=== PATIENT | female | born 2000 | race Caucasian/White ===

== ENCOUNTER 2018-01-05 12:13 | Emergency (ER) | payer OTHER ==
--- NOTE | 2018-01-05 13:19 | ERPHSYRPT ---
- History of Present Illness Time Seen by Provider: 01/05/18 13:07 Source: patient Patient Subjective Stated Complaint: PT REPORTS PRODUCTIVE YELLOW SPUTUM COUGH- SORETHRAOT-FEVER AROUND NORMAL Triage Nursing Assessment: PT PINK WARM ET [id number] EASY ET NONLABORED- LUNGS CLEAR Physician History: PATIENT COMPLAINS OF PRODUCTIVE COUGH YELLOW SPUTUM, FEVER, NASAL CONGESTION AND SORETHROAT X 5 DAYS. DENIES DIFFICULTY BREATHING, SHORTNESS OF BREATH AND DIFFICULTY BREATHING. Timing/Duration: day(s) Cough Quality/Degree: productive cough Possible Cause: occasional episodes Modifying Factors: Improves With: nothing Associated Symptoms: fever, cough, nasal congestion, sore throat Allergies/Adverse Reactions: No Known Drug Allergies Allergy (Unverified 01/05/18 13:03) Hx Tetanus, Diphtheria Vaccination/Date Given: Yes Hx Influenza Vaccination/Date Given: No Hx Pneumococcal Vaccination/Date Given: No Immunizations Up to Date: Yes - Review of Systems Constitutional: Fever, No Chills Eyes: No Symptoms Ears, Nose, & Throat: Nose Congestion, Throat Pain Respiratory: Cough, No Dyspnea Cardiac: No Symptoms, No Chest Pain, No Edema, No Syncope Abdominal/Gastrointestinal: No Symptoms, No Abdominal Pain, No Nausea, No Vomiting, No Diarrhea Genitourinary Symptoms: No Dysuria Musculoskeletal: No Symptoms, No Back Pain, No Neck Pain Skin: No Rash Neurological: No Dizziness, No Focal Weakness, No Sensory Changes Psychological: No Symptoms Endocrine: No Symptoms All Other Systems: Reviewed and Negative - Past Medical History Pertinent Past Medical History: No - Past Surgical History Past Surgical History: No - Social History Smoking Status: Never smoker Exposure to second hand smoke: No Drug Use: none Patient Lives Alone: No - Female History Hx Last Menstrual Period: LAST MONTH Hx Now: No - Nursing Vital Signs Nursing Vital Signs: Initial Vital Signs Temperature 98.9 F 01/05/18 12:59 Pulse Rate 88 01/05/18 12:59 Respiratory Rate 20 01/05/18 12:59 Blood Pressure 121/73 01/05/18 12:59 O2 Sat by Pulse Oximetry 97 01/05/18 12:59 Pain Scale Pain Intensity 0 - Physical Exam General Appearance: no apparent distress, alert Eye Exam: PERRL/EOMI, eyes nml inspection Ears, Nose, Throat Exam: normal ENT inspection, TMs normal, pharynx normal, moist mucous membranes Neck Exam: normal inspection, non-tender, supple, full range of motion Respiratory Exam: normal breath sounds, lungs clear, No respiratory distress Cardiovascular Exam: regular rate/rhythm, normal heart sounds Gastrointestinal/Abdomen Exam: soft, No tenderness Back Exam: normal inspection, No CVA tenderness, No vertebral tenderness Extremity Exam: normal inspection, normal range of motion Neurologic Exam: alert, oriented x 3, cooperative, normal mood/affect, sensation nml, No motor deficits Skin Exam: normal color, warm, dry, No rash Lymphatic Exam: No adenopathy SpO2 Interpretation: normal SpO2: 97 Oxygen Delivery: Room Air Ordered Tests: Active Orders 24 hr Category Date Time Status CULTURE, THROAT Stat Lab 01/05/18 13:30 Received STREP SCREEN-BETA A Stat Lab 01/05/18 13:30 Completed Lab/Rad Data: Laboratory Results 01/05/18 01/05/18 Range/Units 13:30 13:30 Influenza Type A Ag NEGATIVE (NEGATIVE) Influenza Type B Ag NEGATIVE (NEGATIVE) RSV (PCR) NEGATIVE (Negative) Streptococcus Screen NEGATIVE (Negative) - Progress Counseled pt/family regarding: lab results, diagnosis - Departure Time of Disposition: 14:20 Departure Disposition: Home Clinical Impression: ACUTE BRONCHITIS Condition: Stable Critical Care Time: No Additional Instructions: ALTERNATE MOTRIN EVERY OTHER 4 HOURS WITH TYLENOL NEEDED FOR FEVER, ACHES OR CHILLS. ANTIBIOTIC ZITHROMAX 250MG, 2 TABLETS DAY 1 THEN 1 TABLET DAILY FOR 4 DAYS. CONSULT YOUR PRIMARY CARE PROVIDER FOR FOLLOWUP IN 1 WEEK. Prescriptions: Azithromycin 250 mg [Zithromax 250 MG TABLET] 250 mg PO ZPACK #6 tablet
[2018-01-05 14:06] VITALS: BP 115/59; PULSE 66
[2018-01-05 14:18] LABS: INFLUENZA A NEGATIVE (NEGATIVE); INFLUENZA B NEGATIVE (NEGATIVE); RESPIRATORY SYNCTIAL VIRUS NEGATIVE (Negative)
[2018-01-05 14:23] VITALS: O2SAT 97
== END 2018-01-05 14:33 | disposition home or self-care (01) ==
LOC: ED 12:13
DX: J20.9 Acute bronchitis, unspecified (principal)
CPT/HCPCS: 87070; 87430; 87631; 99283

== ENCOUNTER 2018-05-11 11:36 | Emergency (ER) | payer OTHER ==
--- NOTE | 2018-05-11 11:58 | ERPHSYRPT ---
- History of Present Illness Time Seen by Provider: 05/11/18 11:48 Historian: patient Exam Limitations: no limitations Patient Subjective Stated Complaint: LLQ x1 month Triage Nursing Assessment: Pt presents to the ED with complaints LLQ abdominal pain x1 month, worse x1 week. Pt states intermittent constipation. Last BM yesterday. Pt states last menstrual cycle 03/04/2018. Pt states she believes her left side of her abdomin is swollen, no obvious swelling noted to abdominal. No distress noted, skin PWD. Physician History: Pt has been c/o LLQ abdominal pain for "weeks". She states, her pain has become worse over the past few days. She had her last MP over 2 months ago, denies current bleeding, discharge, no nausea, vomiting, fever, chills, diarrhea, but had urinary burning. She has never been , tested her urine for at home, it was negative. She states, she has been constipated, but had small BM yesterday. Timing/Duration: week(s) (4) Activities at Onset: none Quality: cramping Abdominal Pain Onset Location: LLQ Pain Radiation: no radiation Severity of Pain-Max: mild Severity of Pain-Current: moderate Modifying Factors: Improves With: nothing Associated Symptoms: denies symptoms Previous symptoms: no prior history Allergies/Adverse Reactions: No Known Drug Allergies Allergy (Unverified 01/05/18 13:03) Home Medications: No Reportable Medications [No Reported Medications] 05/11/18 [History] Hx Tetanus, Diphtheria Vaccination/Date Given: Yes Hx Influenza Vaccination/Date Given: Yes Hx Pneumococcal Vaccination/Date Given: No Immunizations Up to Date: Yes - Review of Systems Constitutional: No Symptoms Abdominal/Gastrointestinal: Abdominal Pain Genitourinary Symptoms: Frequency, Urgency, No Vaginal Bleeding, No Vaginal Discharge All Other Systems: Reviewed and Negative - Past Medical History Pertinent Past Medical History: No - Past Surgical History Past Surgical History: No - Social History Smoking Status: Current every day smoker How long have you smoked: 1 year Exposure to second hand smoke: Yes Drug Use: none Patient Lives Alone: No - Female History Hx Last Menstrual Period: 03/04/2018 Hx Now: No - Nursing Vital Signs Nursing Vital Signs: Initial Vital Signs Temperature 98.6 F 05/11/18 11:48 Pulse Rate 96 H 05/11/18 11:48 Respiratory Rate 16 05/11/18 11:48 Blood Pressure 116/70 05/11/18 11:48 O2 Sat by Pulse Oximetry 100 05/11/18 11:48 Pain Scale Pain Intensity 4 - Physical Exam General Appearance: no apparent distress Eye Exam: eyes nml inspection Ears, Nose, Throat Exam: normal ENT inspection Neck Exam: normal inspection, non-tender Respiratory Exam: normal breath sounds, lungs clear, airway intact Cardiovascular Exam: regular rate/rhythm, normal heart sounds, normal peripheral pulses Gastrointestinal/Abdomen Exam: soft, normal bowel sounds, tenderness (LLQ, mild) , No distention, No mass, No guarding, No rebound, No hernia Back Exam: normal inspection, No CVA tenderness Extremity Exam: normal inspection, No calf tenderness Neurologic Exam: alert, oriented x 3, normal mood/affect Skin Exam: normal color, warm, dry Lymphatic Exam: No adenopathy SpO2 Interpretation: normal SpO2: 100 Oxygen Delivery: Room Air - Course Nursing assessment & vital signs reviewed: Yes - Radiology Ultrasound Exam OB Ultrasound: tele radiology report, Other (thickened endometrial stripe without intrauterine gestational sac/, right ovary cystic mass not simple in appearance (5.4x3.5x3.0 cm), ectopic not completely excluded in the right) Ordered Tests: Active Orders 24 hr Category Date Time Status OB TRANSVAGINAL [US] Stat Exams 05/11/18 14:01 Completed CBC W DIFF Stat Lab 05/11/18 12:30 Completed CMP Stat Lab 05/11/18 12:30 Completed CULTURE,URINE Stat Lab 05/11/18 12:07 Received HCG, Quantitative (Inhouse) Stat Lab 05/11/18 12:30 Completed HCG,QUALITATIVE URINE Stat Lab 05/11/18 12:07 Completed LIPASE Stat Lab 05/11/18 12:30 Completed UA W/ MICROSCOPIC Stat Lab 05/11/18 12:07 Completed Medication Summary Discontinued Medications Generic Name Dose Route Start Last Admin Trade Name Freq PRN Reason Stop Dose Admin Cephalexin HCl 500 mg 05/11/18 16:49 Keflex 500 Mg PO 05/11/18 16:50 STAT ONE Lab/Rad Data: Laboratory Result Diagrams 05/11/18 12:30 05/11/18 12:30 Laboratory Results 05/11/18 05/11/18 05/11/18 Range/Units 13:33 12:30 12:30 WBC (4.0-10.5) K/mm3 RBC (4.1-5.4) M/mm3 Hgb (12.0-16.0) gm/dl Hct (35-47) % MCV (78-100) fl MCH (26-32) pg MCHC (32-36) g/dl RDW (11.5-14.0) % Plt Count (150-450) K/mm3 MPV (6-9.5) fl Gran % (36.0-66.0) % Eos # (Auto) (0-0.5) Absolute Lymphs (auto) (1.0-4.6) Absolute Monos (auto) (0.0-1.3) Lymphocytes % (24.0-44.0) % Monocytes % (0.0-12.0) % Eosinophils % (0.00-5.0) % Basophils % (0.0-0.4) % Absolute Granulocytes (1.4-6.9) Basophils # (0-0.4) Sodium 142 (137-145) mmol/L Potassium 3.7 (3.5-5.1) mmol/L Chloride 107 (98-107) mmol/L Carbon Dioxide 24 (22-30) mmol/L Anion Gap 14.7 (5-15) MEQ/L BUN 6 L (7-17) mg/dL Creatinine 0.53 (0.52-1.04) mg/dL Estimated GFR > 60.0 ML/MIN Glucose 90 (74-106) mg/dL Calcium 9.3 (8.4-10.2) mg/dL Total Bilirubin 0.20 (0.2-1.3) mg/dL AST 20 (14-36) U/L ALT 22 (0-35) U/L Alkaline Phosphatase 77 (38-126) U/L Serum Total Protein 7.4 (6.3-8.2) g/dL Albumin 4.4 (3.5-5.0) g/dL Lipase 29 (23-300) U/L Beta HCG, Quant 158.49 mIU/ml Ur Collection Type Urine Color (YELLOW) Urine Appearance (CLEAR) Urine pH (5-6) Ur Specific [place] (1.005-1.025) Urine Protein (Negative) Urine Ketones (NEGATIVE) Urine Blood (0-5) Deven/ul Urine Nitrite (NEGATIVE) Urine Bilirubin (NEGATIVE) Urine Urobilinogen (0-1) mg/dL Ur Leukocyte Esterase (NEGATIVE) Urine Microscopic WBC (0-5) /HPF Ur Epithelial Cells (FEW) /HPF Urine Bacteria (NEGATIVE) /HPF Urine Mucus (NEGATIVE) /HPF Urine Culture Reflexed (NO) Urine Glucose (NEGATIVE) mg/dL Urine HCG, Qual (Negative) Specimen Received ABO Group A Rh Factor POSITIVE Antibody Screen NEGATIVE (NEGATIVE) 05/11/18 05/11/18 05/11/18 Range/Units 12:30 12:07 12:07 WBC 7.1 (4.0-10.5) K/mm3 RBC 4.57 (4.1-5.4) M/mm3 Hgb 12.0 (12.0-16.0) gm/dl Hct 36.2 (35-47) % MCV 79.2 (78-100) fl MCH 26.3 (26-32) pg MCHC 33.1 (32-36) g/dl RDW 14.2 H (11.5-14.0) % Plt Count 269 (150-450) K/mm3 MPV 10.9 H (6-9.5) fl Gran % 58.7 (36.0-66.0) % Eos # (Auto) 0.35 (0-0.5) Absolute Lymphs (auto) 1.96 (1.0-4.6) Absolute Monos (auto) 0.56 (0.0-1.3) Lymphocytes % 27.7 (24.0-44.0) % Monocytes % 7.9 (0.0-12.0) % Eosinophils % 5.0 (0.00-5.0) % Basophils % 0.7 (0.0-0.4) % Absolute Granulocytes 4.15 (1.4-6.9) Basophils # 0.05 (0-0.4) Sodium (137-145) mmol/L Potassium (3.5-5.1) mmol/L Chloride (98-107) mmol/L Carbon Dioxide (22-30) mmol/L Anion Gap (5-15) MEQ/L BUN (7-17) mg/dL Creatinine (0.52-1.04) mg/dL Estimated GFR ML/MIN Glucose (74-106) mg/dL Calcium (8.4-10.2) mg/dL Total Bilirubin (0.2-1.3) mg/dL AST (14-36) U/L ALT (0-35) U/L Alkaline Phosphatase (38-126) U/L Serum Total Protein (6.3-8.2) g/dL Albumin (3.5-5.0) g/dL Lipase (23-300) U/L Beta HCG, Quant mIU/ml Ur Collection Type VOID Urine Color YELLOW (YELLOW) Urine Appearance HAZY (CLEAR) Urine pH 6.0 (5-6) Ur Specific [place] 1.020 (1.005-1.025) Urine Protein TRACE (Negative) Urine Ketones NEGATIVE (NEGATIVE) Urine Blood NEGATIVE (0-5) Deven/ul Urine Nitrite NEGATIVE (NEGATIVE) Urine Bilirubin NEGATIVE (NEGATIVE) Urine Urobilinogen NORMAL (0-1) mg/dL Ur Leukocyte Esterase TRACE (NEGATIVE) Urine Microscopic WBC 5-10 (0-5) /HPF Ur Epithelial Cells MODERATE (FEW) /HPF Urine Bacteria FEW (NEGATIVE) /HPF Urine Mucus SLIGHT (NEGATIVE) /HPF Urine Culture Reflexed YES (NO) Urine Glucose NEGATIVE (NEGATIVE) mg/dL Urine HCG, Qual POSITIVE (Negative) Specimen Received 05/11/18 120 ABO Group Rh Factor Antibody Screen (NEGATIVE) - Progress Progress: improved Progress Note: 05/11/18 16:53 I discussed the clinical findings with her, and called Dr Wiley, inhalation therapy aides teacher for Obstetrics. I informed him about our results and her current condition. He agreed to discharge her to follow up with quantitative Beta HCG level in 2 days and return if any worsening, severe pain, or bleeding. Pt also understood and agreed, to follow up with Dr Wiley after follow up blood work in 2-3 days. Discussed with : Saurabh Will see patient in: office Counseled pt/family regarding: lab results, diagnosis, need for follow-up, rad results - Departure Time of Disposition: 16:55 Departure Disposition: Home Clinical Impression: UTI (urinary tract infection) during Qualifiers: Trimester: first trimester Qualified Code(s): O23.41 - Unspecified infection of urinary tract in , first trimester Condition: Stable Critical Care Time: No Referrals: DOCTOR,NO FAMILY [Primary Care Provider] - Instructions: Ectopic (DC), Urinary Tract Infection, Adult (DC) Additional Instructions: Rest x 2-3 days, drink plenty of fluids, nothing vaginally! Follow up with Psychiatric Security Nurse in 2-3 days with serum Beta HCG level, return if severe pain, bleeding, fever> 102 F!
[2018-05-11 12:40] LABS: Appearance HAZY (CLEAR); Bacteria FEW /HPF (NEGATIVE); Bilirubin NEGATIVE (NEGATIVE); Blood NEGATIVE Ery/ul (0-5); Epithelial Cells MODERATE /HPF (FEW); Glucose NEGATIVE (NEGATIVE); Ketones NEGATIVE (NEGATIVE); Leukocyte Esterase TRACE (NEGATIVE); Mucus SLIGHT /HPF (NEGATIVE); Nitrite NEGATIVE (NEGATIVE); Protein,Urine Dip TRACE (Negative); Urobilinogen NORMAL mg/dL (0-1)
[2018-05-11 12:49] LABS: ALBUMIN 4.4 g/dL (3.5-5.0); ALKALINE PHOSPHATASE 77 U/L (38-126); ANION GAP 14.7 MEQ/L (5-15); BASOPHIL % 0.7 % (0.0-0.4); BLOOD UREA NITROGEN 6 mg/dL (7-17); Basophil (Absolute #) 0.05 (0-0.4); CHLORIDE 107 mmol/L (98-107); Calcium 9.3 mg/dL (8.4-10.2); Carbon Dioxide 24 mmol/L (22-30); Creatinine 1 0.53 mg/dL (0.52-1.04); Eosinophil (Absolute #) 0.35 (0-0.5); Glucose 90 mg/dL (74-106); Granulocyte Absolute (ANC) 4.15 (1.4-6.9); Granulocytes % 58.7 % (36.0-66.0); Hematocrit 36.2 % (35-47); LIPASE 29 U/L (23-300); Lymphocyte (Absolute #) 1.96 (1.0-4.6); Lymphocytes % 27.7 % (24.0-44.0); Mean Cell Volume 79.2 fl (78-100); Mean Corpuscular Hemoglobin 26.3 pg (26-32); Mean Corpuscular Hgb Concent. 33.1 g/dl (32-36); Mean Platelet Volume 10.9 fl (6-9.5); Monocyte (Absolute #) 0.56 (0.0-1.3); Monocytes % 7.9 % (0.0-12.0); Platelet Count 269 K/mm3 (150-450); Potassium 3.7 mmol/L (3.5-5.1); Red Blood Count 4.57 M/mm3 (4.1-5.4); Red Cell Distribution Width 14.2 % (11.5-14.0); SGOT/AST 20 U/L (14-36); SGPT/ALT 22 U/L (0-35); SODIUM 142 mmol/L (137-145); Total Protein 7.4 g/dL (6.3-8.2); White Blood Count 7.1 K/mm3 (4.0-10.5)
[2018-05-11 14:29] LABS: ABO TYPING A; Antibody Screen NEGATIVE (NEGATIVE); RH TYPING POSITIVE
--- NOTE | 2018-05-11 15:53 | XRAY ---
Indication: Pelvic pain. Positive test. Two-dimensional transvaginal pelvic ultrasound was performed. Comparison: None Uterus is anteverted measuring 7.6 x 3.9 x 5.0 cm. Myometrium homogeneous. Endometrial stripe is thickened measuring 12.3 mm. No intrauterine gestational sac, , or fluid collection. Right ovary measures 5.4 x 3.5 x 3.0 cm and the left measures 3.4 x 4.0 x 2.3 cm with normal color perfusion and follicular cysts bilaterally. Right ovary demonstrates a thin-walled 2.3 x 3.1 x 2.5 cm cyst with irregular internal hypoechogenicity and peripheral color flow. Ectopic not completely excluded in the right clinical setting. Tiny cul-de-sac fluid. Impression: 1. Thickened endometrial stripe without intrauterine gestational sac/. 2. Right ovary cystic mass not simple in appearance. Ectopic not completely excluded in the right clinical setting. 3. Tiny cul-de-sac fluid.
[2018-05-11 16:45] VITALS: BP 134/75; PULSE 74
[2018-05-11] MEDS ORDERED: KEFLEX 500 MG ONE (16:53)
[2018-05-11] MEDS: KEFLEX 500 MG PO ONE (16:54)
[2018-05-11 16:57] VITALS: O2SAT 100
== END 2018-05-11 17:11 | disposition home or self-care (01) ==
LOC: ED 11:36
DX: O23.40 Unspecified infection of urinary tract in pregnancy, unspecified trimester (principal); Z3A.00 Weeks of gestation of pregnancy not specified
CPT/HCPCS: 36415; 76817; 80053; 81000; 83690; 84702; 84703; 85025; 86850; 86900; 86901; 87086; 99284; A9270-GY

== ENCOUNTER 2018-05-23 21:27 | Emergency (ER) | payer OTHER ==
[2018-05-23 21:53] VITALS: PULSE 91; O2SAT 100
[2018-05-23] MEDS ORDERED: Sodium Chloride 0.9% 1000 ML 1,000 ML IV STA (22:13)
[2018-05-23] MEDS ORDERED: Sodium Chloride 0.9% 1000 ML 1,000 ML ONE (22:17)
--- NOTE | 2018-05-23 22:21 | ERPHSYRPT ---
- History of Present Illness Time Seen by Provider: 05/23/18 21:54 Source: patient Exam Limitations: no limitations Patient Subjective Stated Complaint: Pt arrives to ER with c/o lower abdominal / pelvic pain began 2 days ago stating is but unsure of how far along. States last period was February 16-March 04. Pt has not had OB follow up and has been unable to see PCP d/t he was at . Rescheduled for 06/09/18. pt states always has vomiting d/t which is normal for her. pt also denies diarrhea or constipation. pt states has bladder infection, states was seen here last week and diagnosed with ovarian cysts, UTI and . States abx make her sick so has not been taking them. Triage Nursing Assessment: see above Physician History: Pt was seen here 10 days ago, with abdominal pain, was few weeks , her pelvic US did not reveal intrauterine . Her quant. HCG was >400 2 days later, she has not been seen by her OB yet. She started c/o suprapubic cramps 2 days ago, denies bleeding, fever, chills, but had some discharge. She also denies urinary complaints, has been vomiting x 2-3 daily, ever since diagnosed with the . Timing/Duration: day(s) (2) Activites at Onset: none Quality: cramping Onset Location: suprapubic Pain Radiation: none Severity of Pain-Max: mild Severity of Pain-Current: mild Prior abdominal problems: none Sexual intercourse history: non-contributory Associated Symptoms: nausea, vomiting, vaginal discharge Allergies/Adverse Reactions: No Known Drug Allergies Allergy (Unverified 05/23/18 21:53) Hx Tetanus, Diphtheria Vaccination/Date Given: Yes Hx Influenza Vaccination/Date Given: Yes Hx Pneumococcal Vaccination/Date Given: No - Review of Systems Constitutional: No Symptoms Abdominal/Gastrointestinal: Abdominal Pain, Nausea, Vomiting Genitourinary Symptoms: Vaginal Discharge All Other Systems: Reviewed and Negative - Past Medical History Pertinent Past Medical History: Yes Neurological History: No Pertinent History Other Medical History: ovarian cysts - Past Surgical History Past Surgical History: No - Social History Smoking Status: Former smoker How long have you smoked: 1 year Exposure to second hand smoke: No Drug Use: none Patient Lives Alone: No - Female History Hx Last Menstrual Period: February 26-Viridiana 6 Hx Now: Yes - Nursing Vital Signs Nursing Vital Signs: Initial Vital Signs Temperature 98.3 F 05/23/18 21:39 Pulse Rate 91 H 05/23/18 21:39 Respiratory Rate 18 05/23/18 21:39 Blood Pressure 153/82 05/23/18 21:39 O2 Sat by Pulse Oximetry 100 05/23/18 21:39 Pain Scale Pain Intensity 6 - Physical Exam General Appearance: no apparent distress Eye Exam: eyes nml inspection Ears, Nose, Throat Exam: normal ENT inspection, moist mucous membranes Neck Exam: normal inspection, non-tender, supple Respiratory Exam: normal breath sounds, lungs clear, airway intact, No chest tenderness Cardiovascular Exam: regular rate/rhythm, normal heart sounds, normal peripheral pulses, No murmur Gastrointestinal/Abdomen Exam: soft, normal bowel sounds, tenderness (suprapubic , mild), No distention, No mass, No guarding, No ecchymosis, No pulsatile mass, No rebound, No hernia, No organomegaly Pelvic Exam: normal external exam, cervical motion tenderness, vaginal discharge (light, thin white), No adnexal tenderness, No adnexal mass, No vaginal bleeding, No uterine tenderness Back Exam: normal inspection, No CVA tenderness Extremity Exam: normal inspection, No calf tenderness, No pedal edema Neurologic Exam: alert, oriented x 3, normal mood/affect Skin Exam: normal color, warm, dry, No rash Lymphatic Exam: No adenopathy SpO2 Interpretation: normal SpO2: 100 Oxygen Delivery: Room Air - Course Nursing assessment & vital signs reviewed: Yes - Radiology Ultrasound Exam OB Ultrasound: Other (intrauterine gestational sac) Ordered Tests: Active Orders 24 hr Category Date Time Status IV Insertion STAT Care 05/23/18 22:13 Active NPO (ED) STAT Care 05/23/18 22:13 Active OB <14 WKS 1ST GESTATION [US] Stat Exams 05/23/18 22:14 Taken CBC W DIFF Stat Lab 05/23/18 22:13 Completed CMP Stat Lab 05/23/18 22:13 Completed HCG, Quantitative (Inhouse) Stat Lab 05/23/18 22:14 Completed UA W/RFX UR CULTURE Stat Lab 05/23/18 22:20 Completed Wet Prep Stat Lab 05/23/18 23:15 Uncollected Medication Summary Discontinued Medications Generic Name Dose Route Start Last Admin Trade Name Freq PRN Reason Stop Dose Admin Sodium Chloride 1,000 mls @ 999 mls/hr 05/23/18 22:13 05/23/18 22:20 Sodium Chloride 0.9% 1000 Ml IV 05/23/18 23:13 999 mls/hr .Q1H1M STA Administration Sodium Chloride Confirm 05/23/18 22:17 Sodium Chloride 0.9% 1000 Ml Administered 05/23/18 22:18 Dose 1,000 mls @ ud .ROUTE .STK-MED ONE Potassium Chloride 20 meq 05/23/18 23:23 Potassium Chloride 20 Meq Powder For Oral Eli PO 05/23/18 23:24 NOW ONE Lab/Rad Data: Laboratory Result Diagrams 05/23/18 22:13 05/23/18 22:13 Laboratory Results 05/23/18 05/23/18 05/23/18 Range/Units 22:20 22:14 22:13 WBC (4.0-10.5) K/mm3 RBC (4.1-5.4) M/mm3 Hgb (12.0-16.0) gm/dl Hct (35-47) % MCV (78-100) fl MCH (26-32) pg MCHC (32-36) g/dl RDW (11.5-14.0) % Plt Count (150-450) K/mm3 MPV (6-9.5) fl Gran % (36.0-66.0) % Eos # (Auto) (0-0.5) Absolute Lymphs (auto) (1.0-4.6) Absolute Monos (auto) (0.0-1.3) Lymphocytes % (24.0-44.0) % Monocytes % (0.0-12.0) % Eosinophils % (0.00-5.0) % Basophils % (0.0-0.4) % Absolute Granulocytes (1.4-6.9) Basophils # (0-0.4) Sodium 141 (137-145) mmol/L Potassium 3.4 L (3.5-5.1) mmol/L Chloride 103 (98-107) mmol/L Carbon Dioxide 24 (22-30) mmol/L Anion Gap 17.0 H (5-15) MEQ/L BUN 8 (7-17) mg/dL Creatinine 0.52 (0.52-1.04) mg/dL Estimated GFR > 60.0 ML/MIN Glucose 91 (74-106) mg/dL Calcium 9.9 (8.4-10.2) mg/dL Total Bilirubin 0.20 (0.2-1.3) mg/dL AST 20 (14-36) U/L ALT 30 (0-35) U/L Alkaline Phosphatase 74 (38-126) U/L Serum Total Protein 8.4 H (6.3-8.2) g/dL Albumin 5.0 (3.5-5.0) g/dL Beta HCG, Quant > 88705 mIU/ml Ur Collection Type VOID Urine Color YELLOW (YELLOW) Urine Appearance CLEAR (CLEAR) Urine pH 7.0 (5-6) Ur Specific [place] 1.010 (1.005-1.025) Urine Protein NEGATIVE (Negative) Urine Ketones NEGATIVE (NEGATIVE) Urine Blood NEGATIVE (0-5) Deven/ul Urine Nitrite NEGATIVE (NEGATIVE) Urine Bilirubin NEGATIVE (NEGATIVE) Urine Urobilinogen NORMAL (0-1) mg/dL Ur Leukocyte Esterase NEGATIVE (NEGATIVE) Urine Culture Reflexed NO (NO) Urine Glucose NEGATIVE (NEGATIVE) mg/dL Specimen Received 05/23/180 05/23/18 Range/Units 22:13 WBC 9.3 (4.0-10.5) K/mm3 RBC 4.77 (4.1-5.4) M/mm3 Hgb 12.6 (12.0-16.0) gm/dl Hct 38.0 (35-47) % MCV 79.7 (78-100) fl MCH 26.4 (26-32) pg MCHC 33.2 (32-36) g/dl RDW 14.5 H (11.5-14.0) % Plt Count 338 (150-450) K/mm3 MPV 11.2 H (6-9.5) fl Gran % 63.0 (36.0-66.0) % Eos # (Auto) 0.28 (0-0.5) Absolute Lymphs (auto) 2.44 (1.0-4.6) Absolute Monos (auto) 0.68 (0.0-1.3) Lymphocytes % 26.3 (24.0-44.0) % Monocytes % 7.3 (0.0-12.0) % Eosinophils % 3.0 (0.00-5.0) % Basophils % 0.4 (0.0-0.4) % Absolute Granulocytes 5.84 (1.4-6.9) Basophils # 0.04 (0-0.4) Sodium (137-145) mmol/L Potassium (3.5-5.1) mmol/L Chloride (98-107) mmol/L Carbon Dioxide (22-30) mmol/L Anion Gap (5-15) MEQ/L BUN (7-17) mg/dL Creatinine (0.52-1.04) mg/dL Estimated GFR ML/MIN Glucose (74-106) mg/dL Calcium (8.4-10.2) mg/dL Total Bilirubin (0.2-1.3) mg/dL AST (14-36) U/L ALT (0-35) U/L Alkaline Phosphatase (38-126) U/L Serum Total Protein (6.3-8.2) g/dL Albumin (3.5-5.0) g/dL Beta HCG, Quant mIU/ml Ur Collection Type Urine Color (YELLOW) Urine Appearance (CLEAR) Urine pH (5-6) Ur Specific [place] (1.005-1.025) Urine Protein (Negative) Urine Ketones (NEGATIVE) Urine Blood (0-5) Deven/ul Urine Nitrite (NEGATIVE) Urine Bilirubin (NEGATIVE) Urine Urobilinogen (0-1) mg/dL Ur Leukocyte Esterase (NEGATIVE) Urine Culture Reflexed (NO) Urine Glucose (NEGATIVE) mg/dL Specimen Received - Progress Progress: improved Air Movement: good Progress Note: 05/23/18 23:[address] Gutierrez, discussed our results and her current condition, she agreed to see her in her office in few days, other gallegos recommended rest x 2-3 days, drink plenty of fluids, and return if severe pain, vomiting, or fever> 102 F. She was given prescription for Diclegis #10 BID as needed for vomiting. Discussed with : Brenda Will see patient in: office Counseled pt/family regarding: lab results, diagnosis, need for follow-up, rad results - Departure Time of Disposition: 23:35 Departure Disposition: Home Clinical Impression: Pelvic pain affecting in first trimester, antepartum Condition: Stable Critical Care Time: No Referrals: RAFIA GUTIERREZ [ACTIVE STAFF] - Instructions: Acute Pelvic Pain (DC) Additional Instructions: Rest x 2-3 days, drink plenty of fluids, follow up with Electronic Equipment Installer in 2-3 days , return if severe pain, bleeding, severe vomiting, fever> 102 F! Prescriptions: Doxylamine Succinate/Vit B6 [Stanton Porras 10-10 mg Tablet] 1 each PO BID PRN #10 tablet. PRN Reason: Nausea/Vomiting
[2018-05-23 22:28] LABS: BASOPHIL % 0.4 % (0.0-0.4); Basophil (Absolute #) 0.04 (0-0.4); Eosinophil (Absolute #) 0.28 (0-0.5); Granulocyte Absolute (ANC) 5.84 (1.4-6.9); Hemoglobin 12.6 gm/dl (12.0-16.0); Lymphocyte (Absolute #) 2.44 (1.0-4.6); Lymphocytes % 26.3 % (24.0-44.0); Mean Cell Volume 79.7 fl (78-100); Mean Corpuscular Hemoglobin 26.4 pg (26-32); Mean Corpuscular Hgb Concent. 33.2 g/dl (32-36); Mean Platelet Volume 11.2 fl (6-9.5); Monocyte (Absolute #) 0.68 (0.0-1.3); Monocytes % 7.3 % (0.0-12.0); Platelet Count 338 K/mm3 (150-450); Red Blood Count 4.77 M/mm3 (4.1-5.4); Red Cell Distribution Width 14.5 % (11.5-14.0); White Blood Count 9.3 K/mm3 (4.0-10.5)
[2018-05-23 22:53] LABS: ALKALINE PHOSPHATASE 74 U/L (38-126); BLOOD UREA NITROGEN 8 mg/dL (7-17); CHLORIDE 103 mmol/L (98-107); Calcium 9.9 mg/dL (8.4-10.2); Carbon Dioxide 24 mmol/L (22-30); Creatinine 1 0.52 mg/dL (0.52-1.04); Glucose 91 mg/dL (74-106); Potassium 3.4 mmol/L (3.5-5.1); SGOT/AST 20 U/L (14-36); SGPT/ALT 30 U/L (0-35); SODIUM 141 mmol/L (137-145); Total Protein 8.4 g/dL (6.3-8.2)
[2018-05-23 23:16] LABS: Appearance CLEAR (CLEAR); Bilirubin NEGATIVE (NEGATIVE); Blood NEGATIVE Ery/ul (0-5); Glucose NEGATIVE (NEGATIVE); Ketones NEGATIVE (NEGATIVE); Leukocyte Esterase NEGATIVE (NEGATIVE); Nitrite NEGATIVE (NEGATIVE); Protein,Urine Dip NEGATIVE (Negative); Urobilinogen NORMAL mg/dL (0-1)
[2018-05-23] MEDS ORDERED: POTASSIUM CHLORIDE 20 MEQ POWDER FOR ORAL SOL PO ONE (23:23)
[2018-05-23] MEDS ORDERED: POTASSIUM CHLORIDE 20 MEQ POWDER FOR ORAL SOL ONE (23:30)
[2018-05-23 23:42] VITALS: BP 115/52
[2018-05-23 23:56] LABS: Bacteria Rare; Clue Cells None Seen; Red Blood Cells Rare; Trichomonas None Seen; White Blood Cells Few
[2018-05-24 00:04] LABS: ABO TYPING A; Antibody Screen NEGATIVE (NEGATIVE); RH TYPING POSITIVE
--- NOTE | 2018-05-24 14:08 | XRAY ---
Exam: OB ultrasound less than 14 weeks from 05/23/2018. Comparison: Transvaginal OB ultrasound from 05/11/2018. Indication: Pelvic cramping. Technique: Longitudinal and transverse transabdominal sonogram images were obtained of the pelvis using the bladder as an acoustical window. Findings: The uterus is anteflexed. I now see a normal oval-shaped and positioned gestational sac within the upper uterine segment with an average gestational sac diameter of 1.15 cm consistent with a gestational age of 5 weeks 2 days. However, I do not see a definite intrauterine pole or yolk sac as of yet. It may be too early to see this. I would suggest a follow-up ultrasound in 7-10 days for ongoing evaluation. I see no fluid within the lower uterine segment or cervical canal. No free fluid is seen within the cul-de-sac. The right ovary is remarkable for a cyst at its posterior margin measuring about 3.3 cm x 2.2 cm in cross section. This was seen on the prior OB ultrasound from 05/11/2018 as well, although this cyst appeared somewhat complicated regarding its internal acoustical architecture on the prior study. This is not evident on the current transabdominal study. The remainder of the right ovary appears of unremarkable size and echogenicity. Normal color blood flow is seen within the maternal right ovary. The left ovary reveals a normal size, shape, and echogenicity. Impression: 1. I now see a small apparent gestational sac within the upper uterine segment. The sac size suggests a gestational age of 5 weeks 2 days. However, a definite pole or yolk sac is not seen as of yet. Consider a follow-up ultrasound in 7-10 days as a progress study. 2. I see an apparent oval-shaped 3.3 cm x 2.2 cm cyst at the posterior margin of the maternal right ovary. Internal echoes seen on the prior transvaginal study of 05/11/2018 are unable to be seen on the current transabdominal study. The cyst appears about the same size. 3. The remainder of the maternal ovaries appears unremarkable. 4. No free fluid is seen within the cul-de-sac.
== END 2018-05-23 23:55 | disposition home or self-care (01) ==
LOC: ED 21:27
DX: O26.891 Other specified pregnancy related conditions, first trimester (principal); R10.2 Pelvic and perineal pain
CPT/HCPCS: 36000; 36415; 76801; 76815; 80053; 81002; 84702; 85025; 86850; 86900; 86901; 87210; 87490; 87590; 96360; 96374; 99284

== ENCOUNTER 2018-07-11 15:07 | Emergency (ER) | payer MEDICAID, OTHER ==
[2018-07-11 15:25] VITALS: O2SAT 99
--- NOTE | 2018-07-11 15:53 | ERPHSYRPT ---
- History of Present Illness Time Seen by Provider: 07/11/18 15:35 Source: patient, family Exam Limitations: no limitations Patient Subjective Stated Complaint: pt here fo a syncope episode at work prior to arrival, pt deneis any co's at present time.pt vomited before and after her syncopal epsiode Triage Nursing Assessment: pt walked in, resp easy, skin w/d/p. abd soft Physician History: 17 Y/O WHITE FEMALE WHO IS 13 WEEKS , PRESENTS AFTER A SYNCOPAL EPISODE AT WORK. WITNESSES SAY NO HEAD INJURY. PT WAS FEELING WARM AND HAD NAUSEA PRIOR TO EPISODE. PT VOMITS "ALL THE TIME" SINCE SHE HAS BEEN AND HAS NO ANTIEMETICS AT HOME. PTS OB, DR. FRASER OFFICE IS AWARE PER PT REPORT. PT HAS NO CP, NO ABD PAIN, NO DIARRHEA AND NO VAGINAL BLEEDING. PT HAS NOT HAD AN U/S YET. Witnessed: other (BY FELLOW EMPLOYEES AT WORK) Prior Episodes: single episode today Timing/Duration: today, resolved prior to arrival Precipitating Factors: unknown Charcter of event(s): collapsed, felt faint Allergies/Adverse Reactions: No Known Drug Allergies Allergy (Verified 07/11/18 15:25) Home Medications: Vits W-Ca,Fe,FA(<1Mg) [] 1 ea DAILY 07/11/18 [History] Hx Tetanus, Diphtheria Vaccination/Date Given: Yes Hx Influenza Vaccination/Date Given: Yes Hx Pneumococcal Vaccination/Date Given: No Immunizations Up to Date: Yes - Past Medical History Pertinent Past Medical History: Yes Neurological History: No Pertinent History ENT History: No Pertinent History Cardiac History: No Pertinent History Respiratory History: No Pertinent History Endocrine Medical History: No Pertinent History Musculoskeletal History: No Pertinent History GI Medical History: No Pertinent History History: No Pertinent History Psycho-Social History: No Pertinent History Female Reproductive Disorders: No Pertinent History Other Medical History: ovarian cysts - Past Surgical History Past Surgical History: No Neuro Surgical History: No Pertinent History Cardiac: No Pertinent History Respiratory: No Pertinent History Gastrointestinal: No Pertinent History Genitourinary: No Pertinent History Musculoskeletal: No Pertinent History Female Surgical History: No Pertinent History - Social History Smoking Status: Never smoker How long have you smoked: 1 year Exposure to second hand smoke: Yes Drug Use: none Patient Lives Alone: No - Female History Hx Last Menstrual Period: dayan 6 Hx Now: Yes Expected Date of Delivery: 01/17/19 - Review of Systems Constitutional: No Symptoms Eyes: No Symptoms, No Eye Pain Ears, Nose, & Throat: No Symptoms, No Ear Pain, No Hearing Changes Respiratory: No Symptoms, No Cough, No Dyspnea, No Dyspnea on Exertion (MCGEE), No Stridor, No Wheezing Cardiac: Syncope, No Chest Pain, No Palpitations Abdominal/Gastrointestinal: Nausea, Vomiting, No Abdominal Pain, No Diarrhea Genitourinary Symptoms: No Symptoms, No Dysuria, No Hematuria Musculoskeletal: No Symptoms Skin: No Symptoms Neurological: Dizziness, No Gait Changes, No Headache Psychological: No Symptoms, No Alcohol Abuse, No Drug Abuse, No Anxiety Endocrine: No Symptoms Hematologic/Lymphatic: No Symptoms Immunological/Allergic: No Symptoms All Other Systems: Reviewed and Negative Physical Exam - Nursing Vital Signs Nursing Vital Signs: Initial Vital Signs Temperature 98.0 F 07/11/18 15:19 Pulse Rate 87 07/11/18 15:19 Respiratory Rate 16 07/11/18 15:19 Blood Pressure 125/69 07/11/18 15:19 O2 Sat by Pulse Oximetry 99 07/11/18 15:19 Pain Scale Pain Intensity 0 - Physical Exam General Appearance: no apparent distress, alert, anxiety Eye Exam: bilateral eye: normal inspection, PERRL, EOMI Ears, Nose, Throat Exam: normal ENT inspection, TMs normal, pharynx normal, moist mucous membranes Neck Exam: normal inspection, non-tender, supple, full range of motion Respiratory: normal breath sounds, lungs clear, airway intact, No chest tenderness, No respiratory distress Cardiovascular: regular rate/rhythm, normal heart sounds, normal peripheral pulses Gastrointestinal: soft, normal bowel sounds, No tenderness, No distention, No guarding, No rebound Pelvic Exam: not done Rectal Exam: not done Back Exam: normal inspection, normal range of motion, No vertebral tenderness Extremity Exam: normal inspection, normal range of motion, pelvis stable Mental Status: alert, oriented x 3, cooperative, agitated, uncooperative wireworker Exam: normal hearing, normal speech, PERRL Coordination/Gait: normal finger to nose, normal gait Motor/Sensory: no motor deficit, no sensory deficit Skin Exam: normal color, warm, dry SpO2 Interpretation: normal SpO2: 99 Oxygen Delivery: Room Air - Course Nursing assessment & vital signs reviewed: Yes EKG Interpreted by Me: RATE (75), Sinus Rhythm, NORMAL AXIS, NORMAL INTERVALS, NORMAL QRS, NORMAL ST-T Ordered Tests: Active Orders 24 hr Category Date Time Status Accucheck STAT Care 07/11/18 15:43 Active EKG-ER Only STAT Care 07/11/18 15:43 Active IV Insertion STAT Care 07/11/18 15:43 Active Orthostatic Vital Signs STAT Care 07/11/18 15:43 Active Pulse Oximetry (ED) STAT Care 07/11/18 15:43 Active CBC W DIFF Stat Lab 07/11/18 16:35 Completed CMP Stat Lab 07/11/18 16:35 Completed CULTURE,URINE Stat Lab 07/11/18 15:53 Received UA W/ MICROSCOPIC Stat Lab 07/11/18 15:53 Completed Medication Summary Generic Name Dose Route Start Last Admin Trade Name Freq PRN Reason Stop Dose Admin Ceftriaxone Sodium/Dextrose 1 g in 50 mls @ 100 mls/hr 07/11/18 17:52 Rocephin 1 Gm-D5w 50 Ml Bag IV 07/11/18 18:21 STAT STA Discontinued Medications Generic Name Dose Route Start Last Admin Trade Name Freq PRN Reason Stop Dose Admin Sodium Chloride 1,000 mls @ 999 mls/hr 07/11/18 15:43 07/11/18 16:14 Sodium Chloride 0.9% 1000 Ml IV 07/11/18 16:43 999 mls/hr .Q1H1M STA Administration Sodium Chloride Confirm 07/11/18 16:10 Sodium Chloride 0.9% 1000 Ml Administered 07/11/18 16:11 Dose 1,000 mls @ ud .ROUTE .STK-MED ONE Ondansetron HCl 4 mg 07/11/18 15:45 07/11/18 16:14 Zofran 4 Mg/2 Ml Vial IV 07/11/18 15:46 4 mg STAT ONE Administration Ondansetron HCl Confirm 07/11/18 16:10 Zofran 4 Mg/2 Ml Vial Administered 07/11/18 16:11 Dose 4 mg .ROUTE .STK-MED ONE Lab/Rad Data: Laboratory Result Diagrams 07/11/18 16:35 07/11/18 16:35 Laboratory Results 07/11/18 07/11/18 07/11/18 Range/Units 16:35 16:35 15:53 WBC 10.2 (4.0-10.5) K/mm3 RBC 4.26 (4.1-5.4) M/mm3 Hgb 11.7 L (12.0-16.0) gm/dl Hct 34.1 L (35-47) % MCV 80.0 (78-100) fl MCH 27.4 (26-32) pg MCHC 34.3 (32-36) g/dl RDW 14.1 H (11.5-14.0) % Plt Count 234 (150-450) K/mm3 MPV 10.9 H (6-9.5) fl Gran % 80.5 H (36.0-66.0) % Eos # (Auto) 0.06 (0-0.5) Absolute Lymphs (auto) 1.31 (1.0-4.6) Absolute Monos (auto) 0.58 (0.0-1.3) Lymphocytes % 12.9 L (24.0-44.0) % Monocytes % 5.7 (0.0-12.0) % Eosinophils % 0.6 (0.00-5.0) % Basophils % 0.3 (0.0-0.4) % Absolute Granulocytes 8.18 H (1.4-6.9) Basophils # 0.03 (0-0.4) Sodium 139 (137-145) mmol/L Potassium 4.1 (3.5-5.1) mmol/L Chloride 107 (98-107) mmol/L Carbon Dioxide 22 (22-30) mmol/L Anion Gap 14.1 (5-15) MEQ/L BUN 6 L (7-17) mg/dL Creatinine 0.35 L (0.52-1.04) mg/dL Estimated GFR > 60.0 ML/MIN Glucose 85 (74-106) mg/dL Calcium 9.7 (8.4-10.2) mg/dL Total Bilirubin 0.20 (0.2-1.3) mg/dL AST 19 (14-36) U/L ALT 18 (0-35) U/L Alkaline Phosphatase 48 (38-126) U/L Serum Total Protein 7.4 (6.3-8.2) g/dL Albumin 4.4 (3.5-5.0) g/dL Ur Collection Type VOID Urine Color YELLOW (YELLOW) Urine Appearance CLOUDY (CLEAR) Urine pH 7.5 (5-6) Ur Specific [place] 1.010 (1.005-1.025) Urine Protein NEGATIVE (Negative) Urine Ketones NEGATIVE (NEGATIVE) Urine Blood NEGATIVE (0-5) Deven/ul Urine Nitrite NEGATIVE (NEGATIVE) Urine Bilirubin NEGATIVE (NEGATIVE) Urine Urobilinogen NORMAL (0-1) mg/dL Ur Leukocyte Esterase TRACE (NEGATIVE) Urine Microscopic WBC 0-2 (0-5) /HPF Ur Epithelial Cells MANY (FEW) /HPF Amorphous Crystals MANY (NEGATIVE) /HPF Urine Bacteria MODERATE (NEGATIVE) /HPF Urine Culture Reflexed YES (NO) Urine Glucose NEGATIVE (NEGATIVE) mg/dL Specimen Received 07/11/2018 1640 - Progress Progress: improved, re-examined Progress Note: 07/11/18 17:54 pt states she is feeling much better. i reviewed the results of lab work and ekg. pt has an early uti 07/11/18 18:05 reviewed tx options of pts early uti. pt refusing keflex because it makes her sick and gives her epigastric discomfort. pt also refuses macrodantin because she does not like the rare risks associated with taking it. she agrees to a single injectable dose of rocephin Counseled pt/family regarding: lab results, diagnosis, need for follow-up - Departure Time of Disposition: 17:56 Departure Disposition: Home Clinical Impression: Near syncope, UTI (urinary tract infection) Condition: Stable Critical Care Time: No Referrals: KARI FRASER MD [Primary Care Provider] - Additional Instructions: drink plenty of fluids. use tylenol for pain. follow up with primary doctor/ energy specialist tomorrow for further management
[2018-07-11] MEDS ORDERED: Zofran 4 MG/2 ML VIAL ONE (16:10)
[2018-07-11] MEDS ORDERED: Sodium Chloride 0.9% 1000 ML 1,000 ML ONE (16:10)
[2018-07-11] MEDS: Zofran 4 MG/2 ML VIAL IV ONE (16:14)
[2018-07-11] MEDS: Sodium Chloride 0.9% 1000 ML 1,000 ML IV STA (16:14)
[2018-07-11 16:54] LABS: Appearance CLOUDY (CLEAR); Bilirubin NEGATIVE (NEGATIVE); Blood NEGATIVE Ery/ul (0-5); Glucose NEGATIVE (NEGATIVE); Ketones NEGATIVE (NEGATIVE); Leukocyte Esterase TRACE (NEGATIVE); Nitrite NEGATIVE (NEGATIVE); Ph 7.5 (5-6); Protein,Urine Dip NEGATIVE (Negative); Urobilinogen NORMAL mg/dL (0-1)
[2018-07-11 16:55] LABS: Amourphous Crystal MANY /HPF (NEGATIVE); Bacteria MODERATE /HPF (NEGATIVE); Epithelial Cells MANY /HPF (FEW); WBC 0-2 /HPF (0-5)
[2018-07-11 16:57] LABS: BASOPHIL % 0.3 % (0.0-0.4); Basophil (Absolute #) 0.03 (0-0.4); Eosinophil % 0.6 % (0.00-5.0); Eosinophil (Absolute #) 0.06 (0-0.5); Granulocyte Absolute (ANC) 8.18 (1.4-6.9); Granulocytes % 80.5 % (36.0-66.0); Hematocrit 34.1 % (35-47); Hemoglobin 11.7 gm/dl (12.0-16.0); Lymphocyte (Absolute #) 1.31 (1.0-4.6); Lymphocytes % 12.9 % (24.0-44.0); Mean Corpuscular Hgb Concent. 34.3 g/dl (32-36); Mean Platelet Volume 10.9 fl (6-9.5); Monocyte (Absolute #) 0.58 (0.0-1.3); Monocytes % 5.7 % (0.0-12.0); Platelet Count 234 K/mm3 (150-450); Red Blood Count 4.26 M/mm3 (4.1-5.4); Red Cell Distribution Width 14.1 % (11.5-14.0); White Blood Count 10.2 K/mm3 (4.0-10.5)
[2018-07-11 17:20] LABS: Mean Corpuscular Hemoglobin 27.4 pg (26-32)
[2018-07-11 17:23] LABS: ALBUMIN 4.4 g/dL (3.5-5.0); ALKALINE PHOSPHATASE 48 U/L (38-126); ANION GAP 14.1 MEQ/L (5-15); BLOOD UREA NITROGEN 6 mg/dL (7-17); CHLORIDE 107 mmol/L (98-107); Calcium 9.7 mg/dL (8.4-10.2); Carbon Dioxide 22 mmol/L (22-30); Creatinine 1 0.35 mg/dL (0.52-1.04); Glucose 85 mg/dL (74-106); Potassium 4.1 mmol/L (3.5-5.1); SGOT/AST 19 U/L (14-36); SGPT/ALT 18 U/L (0-35); SODIUM 139 mmol/L (137-145); Total Protein 7.4 g/dL (6.3-8.2)
[2018-07-11] MEDS ORDERED: ROCEPHIN 1 Gm-D5w 50 ml Bag** 1 G/50 ML IVPB IV ONE (17:57)
[2018-07-11] MEDS: ROCEPHIN 1 Gm-D5w 50 ml Bag** 1 G/50 ML IVPB IV STA (18:01)
[2018-07-11 18:54] VITALS: BP 116/54; PULSE 91
== END 2018-07-11 19:02 | disposition home or self-care (01) ==
LOC: ED 15:07
DX: O26.891 Other specified pregnancy related conditions, first trimester (principal); R55 Syncope and collapse; O23.41 Unspecified infection of urinary tract in pregnancy, first trimester; Z3A.13 13 weeks gestation of pregnancy
CPT/HCPCS: 36000; 36415; 80053; 81000; 82962; 85025; 87086; 93005; 96360; 96365; 96374; 99284; J0696; J2405

== ENCOUNTER 2018-07-28 10:46 | Emergency (ER) | payer MEDICAID ==
--- NOTE | 2018-07-28 12:03 | ERPHSYRPT ---
- History of Present Illness Time Seen by Provider: 07/28/18 10:47 Historian: patient, family Exam Limitations: no limitations Patient Subjective Stated Complaint: Patient complains of lower right sided abdominal pain 5/10. Patient states she has a cyst to her right ovary. Patient stated it the pain got worse while she was urinating. Triage Nursing Assessment: Patient A+O. Patient complains of lower right sided abdominal pain 5/10. Patient states she has a cyst to her right ovary. Patient stated it the pain got worse while she was urinating. Patient is currently 15 weeks . Patient's abdomen soft, round and non tender. Patient denies any vaginal bleeding. Physician History: patient presents with RLQ pain since yesterday; she is 4 +- months ; ; EDC Dec 2018 she; hxof right ovarian cysts; pain intermittant; good appetite; some N&V but associated with ; no change in void or stool; some increased pain with urination this am but no burning or d/c; no sex for a week; no trauma; pain simialar to cyst pain in past Timing/Duration: today (worse), yesterday, intermittent, worse Activities at Onset: rest Quality: aching, sharpness Abdominal Pain Onset Location: RLQ Pain Radiation: no radiation Severity of Pain-Max: severe (7/10) Severity of Pain-Current: moderate (5/10) Modifying Factors: Improves With: urinating Associated Symptoms: nausea Previous symptoms: same symptoms as today Allergies/Adverse Reactions: No Known Drug Allergies Allergy (Verified 07/28/18 10:53) Home Medications: Vits W-Ca,Fe,FA(<1Mg) [] 1 ea DAILY 07/11/18 [History] Ondansetron HCl 07/28/18 [History] Hx Tetanus, Diphtheria Vaccination/Date Given: Yes Hx Influenza Vaccination/Date Given: Yes Hx Pneumococcal Vaccination/Date Given: No Immunizations Up to Date: Yes - Review of Systems Constitutional: No Symptoms Eyes: No Symptoms Ears, Nose, & Throat: No Symptoms Respiratory: No Cough, No Dyspnea, No Wheezing Cardiac: No Chest Pain, No Palpitations, No Syncope Abdominal/Gastrointestinal: Abdominal Pain, Nausea, No Vomiting, No Diarrhea, No Hematemesis, No Appetite Changes Genitourinary Symptoms: No Dysuria, No Frequency, No Hematuria, No Hesitancy, No Incontinence, No Urgency, No Flank Pain, No Vaginal Bleeding Musculoskeletal: No Symptoms Skin: No Symptoms Neurological: No Symptoms Psychological: No Symptoms Endocrine: No Symptoms Hematologic/Lymphatic: No Symptoms Immunological/Allergic: No Symptoms - Past Medical History Pertinent Past Medical History: Yes Neurological History: No Pertinent History ENT History: No Pertinent History Cardiac History: No Pertinent History Respiratory History: No Pertinent History Endocrine Medical History: No Pertinent History Musculoskeletal History: No Pertinent History GI Medical History: No Pertinent History History: No Pertinent History Psycho-Social History: No Pertinent History Female Reproductive Disorders: No Pertinent History Other Medical History: ovarian cysts - Past Surgical History Past Surgical History: No Neuro Surgical History: No Pertinent History Cardiac: No Pertinent History Respiratory: No Pertinent History Gastrointestinal: No Pertinent History Genitourinary: No Pertinent History Musculoskeletal: No Pertinent History Female Surgical History: No Pertinent History - Social History Smoking Status: Never smoker How long have you smoked: 1 year Exposure to second hand smoke: Yes Alcohol Use: None Drug Use: none Patient Lives Alone: No Significant Family History: no pertinent family hx - Female History Hx Now: Yes Expected Date of Delivery: 01/17/19 - Nursing Vital Signs Nursing Vital Signs: Initial Vital Signs Temperature 98.5 F 07/28/18 10:55 Pulse Rate 81 07/28/18 10:55 Respiratory Rate 18 07/28/18 10:55 Blood Pressure 114/50 07/28/18 10:55 O2 Sat by Pulse Oximetry 99 07/28/18 10:55 Pain Scale Pain Intensity 5 - Physical Exam General Appearance: moderate distress, alert, other () Eye Exam: PERRL/EOMI, eyes nml inspection Ears, Nose, Throat Exam: normal ENT inspection, TMs normal, pharynx normal, moist mucous membranes Neck Exam: normal inspection, non-tender, supple, full range of motion, No JVD Respiratory Exam: normal breath sounds, lungs clear, airway intact, No chest tenderness, No respiratory distress Cardiovascular Exam: regular rate/rhythm, normal heart sounds, normal peripheral pulses, capillary refill <2 sec, No murmur Gastrointestinal/Abdomen Exam: soft, normal bowel sounds, tenderness (sight LLQ ; mod RLQ; ), guarding (slight active guarding rLQ only), other (uterus enlarged with dates; non-tender), No pulsatile mass, No rebound, No hernia Pelvic Exam: deferred Rectal Exam: deferred Back Exam: normal inspection, normal range of motion, No CVA tenderness, No vertebral tenderness, No rash Extremity Exam: normal inspection, normal range of motion, No patrick's sign, No pedal edema Neurologic Exam: alert, oriented x 3, cooperative, community health agent II-XII nml as tested, normal mood/affect, nml station & gait Skin Exam: normal color, warm, dry, No rash, No petechiae Lymphatic Exam: No adenopathy SpO2 Interpretation: normal SpO2: 99 Oxygen Delivery: Room Air - Course Nursing assessment & vital signs reviewed: Yes - Radiology Ultrasound Exam Pelvis Ultrasound: tele radiology report, negative, Other (no ovarian cyst; no evidence of appendicitis seen; fetus 15 weeks 4 days; HR at 157) Ordered Tests: Active Orders 24 hr Category Date Time Status ABDOMINAL-LIMITED [US] Routine Exams 07/28/18 12:12 Completed OB >14 WKS 1st GESTATION [US] Stat Exams 07/28/18 11:14 Completed UA W/RFX UR CULTURE Stat Lab 07/28/18 12:11 Completed Lab/Rad Data: Laboratory Results 07/28/18 Range/Units 12:11 Ur Collection Type CCMS Urine Color YELLOW (YELLOW) Urine Appearance SLIGHTLY CLOUDY (CLEAR) Urine pH 7.0 (5-6) Ur Specific [place] 1.015 (1.005-1.025) Urine Protein NEGATIVE (Negative) Urine Ketones MODERATE (NEGATIVE) Urine Blood NEGATIVE (0-5) Deven/ul Urine Nitrite NEGATIVE (NEGATIVE) Urine Bilirubin NEGATIVE (NEGATIVE) Urine Urobilinogen NORMAL (0-1) mg/dL Ur Leukocyte Esterase NEGATIVE (NEGATIVE) Urine Culture Reflexed NO (NO) Urine Glucose NEGATIVE (NEGATIVE) mg/dL Specimen Received 07-28-18 1220 reviewed - Progress Progress: pain not gone completely, re-examined (after US) Progress Note: 07/28/18 12:07 discussed treatment; plan with patient and family; will get US to check for cyst vs appendix vs abnormality of causing pain; will recheck after US 07/28/18 12:18 US negative for medical emergencies; patietn informed; lab pending; will recheck 07/28/18 12:43 ua neg; doing better; treatment plan and instructions given Counseled pt/family regarding: lab results, diagnosis, need for follow-up, rad results - Departure Time of Disposition: 12:44 Departure Disposition: Home Clinical Impression: Pelvic pain affecting in first trimester, antepartum Condition: Stable Critical Care Time: No Referrals: KARI FRASER MD [Primary Care Provider] - Instructions: Acute Abdomen (Belly Pain), Adult (DC) Additional Instructions: tylenol prn Follow-up with family doctor as directed. Call for appointment. Return if any problems. If you smoke please stop. Call or follow up with your family doctor for assistance if you need it to stop. Please wear your seatbelt when driving. Have a nice day. Thank you for allowing us to participate in your care today. :o) Dr Rikki Sherman
[2018-07-28 12:26] LABS: Appearance SLIGHTLY CLOUDY (CLEAR); Bilirubin NEGATIVE (NEGATIVE); Blood NEGATIVE Ery/ul (0-5); Glucose NEGATIVE (NEGATIVE); Ketones MODERATE (NEGATIVE); Leukocyte Esterase NEGATIVE (NEGATIVE); Nitrite NEGATIVE (NEGATIVE); Protein,Urine Dip NEGATIVE (Negative); Specific Gravity 1.015 (1.005-1.025); Urobilinogen NORMAL mg/dL (0-1)
--- NOTE | 2018-07-28 12:28 | XRAY ---
Indication: Right lower quadrant pain. Evaluate fetus. Limited OB ultrasound performed. Comparison: June 03, 2018. Again there is a single viable intrauterine with heart rate 157 bpm. Visualized stomach and bladder are unremarkable. Anterior placenta without abruption or abnormal retroplacental fluid. Left and right ovaries sonographically unremarkable with normal perfusion. BPD measures 2.99 cm corresponding to 15 weeks 3 days. HC measures 11.41 cm corresponding to 15 weeks 4 days. AC measures 9.23 cm corresponding to 15 weeks 3 days. FL measures 1.95 cm corresponding to 15 weeks 6 days. Impression: Again single viable intrauterine with mean gestational age 15 weeks 4 days. Normal progression of . No new/acute findings.
--- NOTE | 2018-07-28 12:30 | XRAY ---
Indication: Right lower quadrant pain. Two-dimensional targeted right lower quadrant abdominal sonogram performed. Appendix not identified. There is no suspicious solid/cystic mass or abnormal fluid collection. Impression: Negative targeted right lower quadrant abdominal sonogram.
[2018-07-28 12:55] VITALS: BP 109/56; PULSE 60; O2SAT 100
== END 2018-07-28 12:56 | disposition home or self-care (01) ==
LOC: ED 10:46
DX: O26.892 Other specified pregnancy related conditions, second trimester (principal); Z3A.16 16 weeks gestation of pregnancy; R10.2 Pelvic and perineal pain; R11.0 Nausea
CPT/HCPCS: 76705; 76805; 81002; 99284

== ENCOUNTER 2018-10-10 23:39 | Observation (INO) | payer BC ==
[2018-10-11 04:02] VITALS: BP 103/53; PULSE 78
[2018-10-11 04:24] LABS: Amphetamine,Urine NEGATIVE (NEGATIVE); Barbiturate,Urine NEGATIVE (NEGATIVE); Benzodiazepine,Urine NEGATIVE (NEGATIVE); Cocaine,Urine NEGATIVE (NEGATIVE); Methadone,Urine NEGATIVE (NEGATIVE); Opiate,Urine NEGATIVE (NEGATIVE); PCP,Urine NEGATIVE (NEGATIVE); THC,Urine NEGATIVE (NEGATIVE)
== END 2018-10-11 04:00 | disposition home or self-care (01) ==
LOC: OB 23:39
PROVIDERS: ADMIT Family Medicine; ATTEND Family Medicine
DX: Z34.02 Encounter for supervision of normal first pregnancy, second trimester (principal)
CPT/HCPCS: 80307; G0378

== ENCOUNTER 2018-11-25 14:32 | Observation (INO) | payer BC ==
[2018-11-25 15:28] LABS: Appearance SLIGHTLY CLOUDY (CLEAR); Bilirubin NEGATIVE (NEGATIVE); Blood NEGATIVE Ery/ul (0-5); Glucose NEGATIVE (NEGATIVE); Ketones NEGATIVE (NEGATIVE); Leukocyte Esterase NEGATIVE (NEGATIVE); Nitrite NEGATIVE (NEGATIVE); Protein,Urine Dip NEGATIVE (Negative); Specific Gravity 1.006 (1.005-1.025); Urobilinogen NEGATIVE mg/dL (0-1)
[2018-11-25 16:21] VITALS: BP 115/55; PULSE 78
== END 2018-11-25 16:00 | disposition home or self-care (01) ==
LOC: OB 14:32 → UNDOADMOB 14:32 → UNDODISOB 16:00
PROVIDERS: ADMIT Family Medicine; ATTEND Family Medicine
DX: Z34.03 Encounter for supervision of normal first pregnancy, third trimester (principal)
CPT/HCPCS: 81001; 83986; G0378

== ENCOUNTER 2018-12-08 02:50 | Observation (INO) | payer BC ==
[2018-12-08 03:09] VITALS: BP 109/63; PULSE 84
[2018-12-08 03:39] LABS: Appearance SLIGHTLY CLOUDY (CLEAR); Bacteria RARE /HPF (NEGATIVE); Bilirubin NEGATIVE (NEGATIVE); Blood NEGATIVE Ery/ul (0-5); Epithelial Cells FEW /HPF (FEW); Glucose NEGATIVE (NEGATIVE); Ketones NEGATIVE (NEGATIVE); Leukocyte Esterase LARGE (NEGATIVE); Mucus SLIGHT /HPF (NEGATIVE); Nitrite NEGATIVE (NEGATIVE); Protein,Urine Dip NEGATIVE (Negative); Urobilinogen NEGATIVE mg/dL (0-1)
[2018-12-08 03:54] LABS: Amphetamine,Urine NEGATIVE (NEGATIVE); Barbiturate,Urine NEGATIVE (NEGATIVE); Benzodiazepine,Urine NEGATIVE (NEGATIVE); Cocaine,Urine NEGATIVE (NEGATIVE); Methadone,Urine NEGATIVE (NEGATIVE); Opiate,Urine NEGATIVE (NEGATIVE); PCP,Urine NEGATIVE (NEGATIVE); THC,Urine NEGATIVE (NEGATIVE)
== END 2018-12-08 04:29 | disposition home or self-care (01) ==
LOC: OB 02:50
PROVIDERS: ADMIT Family Medicine; ATTEND Family Medicine
DX: Z34.03 Encounter for supervision of normal first pregnancy, third trimester (principal)
CPT/HCPCS: 80307; 81001; 87086; G0378

== ENCOUNTER 2018-12-10 22:55 | Observation (INO) | payer BC ==
[2018-12-10 23:21] VITALS: BP 107/61; PULSE 81
[2018-12-10] MEDS ORDERED: Lactated Ringers 1,000 ML IV ONE ×2 (23:53→23:54)
[2018-12-10] MEDS ORDERED: TYLENOL 325 MG PO PRN (23:53)
[2018-12-10] MEDS ORDERED: TYLENOL 325 MG ONE (23:54)
[2018-12-11 00:24] LABS: BASOPHIL % 0.2 % (0.0-0.4); Basophil (Absolute #) 0.03 (0-0.4); Eosinophil % 1.7 % (0.00-5.0); Eosinophil (Absolute #) 0.23 (0-0.5); Granulocytes % 69.3 % (36.0-66.0); Hemoglobin 10.6 gm/dl (12.0-16.0); Lymphocyte (Absolute #) 2.93 (1.0-4.6); Lymphocytes % 21.1 % (24.0-44.0); Mean Cell Volume 84.6 fl (78-100); Mean Corpuscular Hgb Concent. 32.1 g/dl (32-36); Mean Platelet Volume 10.8 fl (6-9.5); Monocyte (Absolute #) 1.07 (0.0-1.3); Monocytes % 7.7 % (0.0-12.0); Platelet Count 268 K/mm3 (150-450); Red Cell Distribution Width 14.1 % (11.5-14.0); White Blood Count 13.9 K/mm3 (4.0-10.5)
[2018-12-11 00:30] LABS: Mean Corpuscular Hemoglobin 27.1 pg (26-32)
[2018-12-11 00:35] LABS: ALBUMIN 3.8 g/dL (3.5-5.0); ALKALINE PHOSPHATASE 117 U/L (38-126); ANION GAP 13.9 MEQ/L (5-15); BLOOD UREA NITROGEN 5 mg/dL (7-17); CHLORIDE 104 mmol/L (98-107); Calcium 9.3 mg/dL (8.4-10.2); Carbon Dioxide 24 mmol/L (22-30); Creatinine 1 0.41 mg/dL (0.52-1.04); Glucose 85 mg/dL (74-106); Potassium 3.8 mmol/L (3.5-5.1); SGOT/AST 18 U/L (14-36); SGPT/ALT 12 U/L (0-35); SODIUM 138 mmol/L (137-145); Total Protein 6.8 g/dL (6.3-8.2)
[2018-12-11 00:36] LABS: Amourphous Crystal MODERATE /HPF (NEGATIVE); Appearance SLIGHTLY CLOUDY (CLEAR); Bacteria RARE /HPF (NEGATIVE); Bilirubin NEGATIVE (NEGATIVE); Blood NEGATIVE Ery/ul (0-5); Crystals Unidentified 25-50 /HPF (NEGATIVE); Epithelial Cells RARE /HPF (FEW); Glucose NEGATIVE (NEGATIVE); Ketones NEGATIVE (NEGATIVE); Leukocyte Esterase LARGE (NEGATIVE); Mucus SLIGHT /HPF (NEGATIVE); Nitrite NEGATIVE (NEGATIVE); Protein,Urine Dip NEGATIVE (Negative); RBC 0-2 /HPF (0-2); Specific Gravity 1.011 (1.005-1.025); Urobilinogen NEGATIVE mg/dL (0-1)
== END 2018-12-11 01:30 | disposition home or self-care (01) ==
LOC: UNDOADMOB 22:55 → OB 22:55 → UNDODISOB 12-11 01:30
PROVIDERS: ADMIT Family Medicine; ATTEND Family Medicine
DX: Z34.03 Encounter for supervision of normal first pregnancy, third trimester (principal)
CPT/HCPCS: 36415; 80053; 81001; 85025; 87086; G0378; A9270-GY

== ENCOUNTER 2018-12-22 16:17 | Observation (INO) | payer BC ==
[2018-12-22 17:09] LABS: Appearance CLOUDY (CLEAR); Bacteria MODERATE /HPF (NEGATIVE); Bilirubin NEGATIVE (NEGATIVE); Blood NEGATIVE Ery/ul (0-5); Epithelial Cells FEW /HPF (FEW); Glucose NEGATIVE (NEGATIVE); Ketones NEGATIVE (NEGATIVE); Leukocyte Esterase LARGE (NEGATIVE); Mucus SLIGHT /HPF (NEGATIVE); Nitrite NEGATIVE (NEGATIVE); Protein,Urine Dip NEGATIVE (Negative); Specific Gravity 1.017 (1.005-1.025); Urobilinogen 2 mg/dL (0-1); WBC 26-50 /HPF (0-5)
[2018-12-22 17:36] VITALS: BP 110/58; PULSE 80
== END 2018-12-22 17:14 | disposition home or self-care (01) ==
LOC: OB 16:17
PROVIDERS: ADMIT Family Medicine; ATTEND Family Medicine
DX: Z34.03 Encounter for supervision of normal first pregnancy, third trimester (principal)
CPT/HCPCS: 81001; 83986; 87086; G0378

== ENCOUNTER 2019-01-03 21:46 | Observation (INO) | payer BC ==
[2019-01-03 22:29] LABS: Amphetamine,Urine NEGATIVE (NEGATIVE); Barbiturate,Urine NEGATIVE (NEGATIVE); Benzodiazepine,Urine NEGATIVE (NEGATIVE); Cocaine,Urine NEGATIVE (NEGATIVE); Methadone,Urine NEGATIVE (NEGATIVE); Opiate,Urine NEGATIVE (NEGATIVE); PCP,Urine NEGATIVE (NEGATIVE); THC,Urine NEGATIVE (NEGATIVE)
[2019-01-04 00:32] VITALS: BP 121/63; PULSE 83
== END 2019-01-03 23:58 | disposition home or self-care (01) ==
LOC: OB 21:46
PROVIDERS: ADMIT Family Medicine; ATTEND Family Medicine
DX: Z34.03 Encounter for supervision of normal first pregnancy, third trimester (principal)
CPT/HCPCS: 80307; G0378

== ENCOUNTER 2019-01-05 16:56 | Observation (INO) | payer BC ==
[2019-01-05 18:01] LABS: Appearance CLEAR (CLEAR); Bilirubin NEGATIVE (NEGATIVE); Blood NEGATIVE Ery/ul (0-5); Epithelial Cells RARE /HPF (FEW); Glucose NEGATIVE (NEGATIVE); Ketones NEGATIVE (NEGATIVE); Leukocyte Esterase NEGATIVE (NEGATIVE); Mucus SLIGHT /HPF (NEGATIVE); Nitrite NEGATIVE (NEGATIVE); Protein,Urine Dip NEGATIVE (Negative); RBC 0-2 /HPF (0-2); Specific Gravity 1.003 (1.005-1.025); Urobilinogen NEGATIVE mg/dL (0-1); WBC 0-2 /HPF (0-5)
[2019-01-05 18:04] VITALS: BP 121/67; PULSE 78
== END 2019-01-05 18:30 | disposition home or self-care (01) ==
LOC: UNDOADMOB 16:56 → MED SURG 16:56 → UNDODISOB 18:30
PROVIDERS: ADMIT Family Medicine; ATTEND Family Medicine
DX: Z34.83 Encounter for supervision of other normal pregnancy, third trimester (principal)
CPT/HCPCS: 81001; G0378

== ENCOUNTER 2019-01-10 06:25 | Inpatient (IN) | payer BC ==
[2019-01-10] MEDS ORDERED: PITOCIN 30 UNITS/ LR 500 ML 30 UNITS/500 ML IV.SOLN. IV SCH (17:15)
[2019-01-10] MEDS ORDERED: BRETHINE 1 MG/ML SQ PRN (17:15)
[2019-01-10] MEDS ORDERED: XYLOCAINE 1% HCL 20 ML MDV IJ PRN (17:15)
[2019-01-10 17:37] LABS: BASOPHIL % 0.2 % (0.0-0.4); Basophil (Absolute #) 0.02 (0-0.4); Eosinophil % 1.3 % (0.00-5.0); Eosinophil (Absolute #) 0.14 (0-0.5); Granulocyte Absolute (ANC) 8.35 (1.4-6.9); Granulocytes % 74.8 % (36.0-66.0); Hematocrit 32.9 % (35-47); Hemoglobin 10.5 gm/dl (12.0-16.0); Lymphocyte (Absolute #) 1.88 (1.0-4.6); Lymphocytes % 16.8 % (24.0-44.0); Mean Cell Volume 83.7 fl (78-100); Mean Corpuscular Hemoglobin 26.7 pg (26-32); Mean Corpuscular Hgb Concent. 31.9 g/dl (32-36); Monocyte (Absolute #) 0.77 (0.0-1.3); Monocytes % 6.9 % (0.0-12.0); Platelet Count 246 K/mm3 (150-450); Red Blood Count 3.93 M/mm3 (4.1-5.4); Red Cell Distribution Width 13.9 % (11.5-14.0); White Blood Count 11.2 K/mm3 (4.0-10.5)
[2019-01-10] MEDS ORDERED: Cervidil 10 MG VAG SCH (18:00)
[2019-01-10 18:08] LABS: Amphetamine,Urine NEGATIVE (NEGATIVE); Barbiturate,Urine NEGATIVE (NEGATIVE); Benzodiazepine,Urine NEGATIVE (NEGATIVE); Cocaine,Urine NEGATIVE (NEGATIVE); Methadone,Urine NEGATIVE (NEGATIVE); Opiate,Urine NEGATIVE (NEGATIVE); PCP,Urine NEGATIVE (NEGATIVE); THC,Urine NEGATIVE (NEGATIVE)
[2019-01-10] MEDS ORDERED: PITOCIN 30 UNITS/ LR 500 ML 500 ML IV SCH (20:30)
[2019-01-10] MEDS ORDERED: Ambien 5 MG Tablet PO SCH (22:00)
[2019-01-11] MEDS ORDERED: TYLENOL 325 MG PO PRN (03:05)
[2019-01-11] MEDS: Lactated Ringers 1,000 ML IV SCH ×4 (03:06→18:11)
[2019-01-11] MEDS ORDERED: MORPHINE SULFATE 4 MG INJ IV ONE (03:21)
[2019-01-11] MEDS ORDERED: OMNIPEN 2 GM / NACL 100ML 100 ML IV ONE (06:00)
[2019-01-11] MEDS ORDERED: PITOCIN 30 UNITS/ LR 500 ML 500 ML IV SCH ×2 (06:00)
[2019-01-11] MEDS ORDERED: Ephedrine Sulfate 50 MG/ML IV PRN (07:45)
[2019-01-11] MEDS ORDERED: Lactated Ringers 1,000 ML IV ONE (07:45)
[2019-01-11] MEDS: OB EPIDURAL NAROPIN/SUFENTANIL IN NACL EPIDURAL PRN ×2 (07:56→16:48)
[2019-01-11 09:50] VITALS: O2SAT 99
[2019-01-11] MEDS: OMNIPEN 1GM / NaCl 100ML 100 ML IV SCH ×3 (09:57→18:10)
[2019-01-11] MEDS ORDERED: Dermoplast Spray TP PRN (23:45)
[2019-01-11] MEDS ORDERED: Mylicon 80MG PO PRN (23:45)
[2019-01-11] MEDS ORDERED: NORCO 5/325 MG PO PRN (23:45)
[2019-01-11] MEDS ORDERED: MOTRIN 400 MG PO PRN (23:45)
[2019-01-11] MEDS ORDERED: TUCKS TP PRN (23:45)
[2019-01-11] MEDS ORDERED: CORTISONE 1% CREAM TP PRN (23:45)
[2019-01-11] MEDS ORDERED: Anucort-HC SUPPOSITORY PR PRN (23:45)
[2019-01-11] MEDS ORDERED: Ambien 10 MG PO PRN (23:45)
[2019-01-11] MEDS ORDERED: TYLENOL EXTRA STRENGTH 500 MG PO PRN (23:45)
[2019-01-11] MEDS ORDERED: Dulcolax 10 MG SUPP PR PRN (23:45)
[2019-01-11] MEDS ORDERED: LANSINOH 40 GM TOP PRN (23:45)
[2019-01-12] MEDS ORDERED: MOTRIN 400 MG ONE (01:32)
[2019-01-12] MEDS ORDERED: BENADRYL 25 MG CAPSULE PO PRN (02:04)
[2019-01-12 05:42] LABS: BASOPHIL % 0.1 % (0.0-0.4); Basophil (Absolute #) 0.02 (0-0.4); Eosinophil % 0.1 % (0.00-5.0); Eosinophil (Absolute #) 0.02 (0-0.5); Granulocyte Absolute (ANC) 14.46 (1.4-6.9); Hematocrit 31.1 % (35-47); Hemoglobin 10.1 gm/dl (12.0-16.0); Lymphocyte (Absolute #) 1.23 (1.0-4.6); Lymphocytes % 7.2 % (24.0-44.0); Mean Cell Volume 82.9 fl (78-100); Mean Corpuscular Hemoglobin 26.9 pg (26-32); Mean Corpuscular Hgb Concent. 32.5 g/dl (32-36); Mean Platelet Volume 11.4 fl (6-9.5); Monocyte (Absolute #) 1.29 (0.0-1.3); Monocytes % 7.6 % (0.0-12.0); Platelet Count 263 K/mm3 (150-450); Red Blood Count 3.75 M/mm3 (4.1-5.4); Red Cell Distribution Width 13.7 % (11.5-14.0)
[2019-01-12] MEDS ORDERED: Colace 100 MG PO SCH (10:00)
[2019-01-12] MEDS ORDERED: FERREX 150 PO SCH (10:00)
--- NOTE | 2019-01-12 23:54 | PCM.DS ---
Discharge Summary Date of Admission: 01/11/19 06:25 Admitting Physician: KARI FRASER Consults: Consults on Case 01/11/19 07:45 Notify Anesthesia Provider PRN Primary Care Provider: KARI FRASER Allergies Allergies cephalexin [From Keflex] Adverse Reaction (Verified 01/10/19 17:20) vomits and abdominal pain whenever she takes it Hospital Summary - Hospital Course Hospital Course: patient had at 39 1/7 weeks, elective induction. GBS + and received ampicillin x 3 doses, patient has pain associated with hemorrhoids following delivery but otherwise is doing well. baby having possible seizures, transferring to NICU so mother is being released at this time. - Vitals & Intake/Output Vital Signs: Vital Signs Temperature 98.1 F 01/12/19 14:00 Pulse Rate 72 01/12/19 14:00 Respiratory Rate 16 01/12/19 14:00 Blood Pressure 123/69 01/12/19 14:00 O2 Sat by Pulse Oximetry 99 01/11/19 08:45 Intake & Output: Intake & Output 01/10/19 01/11/19 01/12/19 01/13/19 11:59 11:59 11:59 11:59 Intake Total 5404 Output Total 400 1200 Balance -400 4204 Weight 69.853 kg - Lab Result Diagrams: 01/12/19 05:32 Lab Results-Last 24 Hrs: Lab Results-Last 24 Hours 01/12/19 Range/Units 05:32 WBC 17.0 H (4.0-10.5) K/mm3 RBC 3.75 L (4.1-5.4) M/mm3 Hgb 10.1 L (12.0-16.0) gm/dl Hct 31.1 L (35-47) % MCV 82.9 (78-100) fl MCH 26.9 (26-32) pg MCHC 32.5 (32-36) g/dl RDW 13.7 (11.5-14.0) % Plt Count 263 (150-450) K/mm3 MPV 11.4 H (6-9.5) fl Gran % 85.0 H (36.0-66.0) % Eos # (Auto) 0.02 (0-0.5) Absolute Lymphs (auto) 1.23 (1.0-4.6) Absolute Monos (auto) 1.29 (0.0-1.3) Lymphocytes % 7.2 L (24.0-44.0) % Monocytes % 7.6 (0.0-12.0) % Eosinophils % 0.1 (0.00-5.0) % Basophils % 0.1 (0.0-0.4) % Absolute Granulocytes 14.46 H (1.4-6.9) Basophils # 0.02 (0-0.4) Micro Results-Entire Visit: Microbiology 01/11/19 09:43 Urine Culture - Preliminary Catherized NO GROWTH TO DATE Discharge Exam General Appearance: no apparent distress, alert Skin Exam: normal color, warm, dry Respiratory Exam: normal breath sounds, lungs clear, No respiratory distress Cardiovascular Exam: regular rate/rhythm, normal heart sounds Gastrointestinal/Abdomen Exam: soft, No tenderness, No mass Extremity Exam: normal inspection, normal range of motion Final Diagnosis/Problem List - Final Discharge Diagnosis/Problem (1) Vaginal delivery Current Visit: Yes Status: Acute - Discharge Disposition: Home, Self-Care Condition: Stable Prescriptions: Continue Vits W-Ca,Fe,FA(<1Mg) [] 1 ea PO DAILY Ferrous Sulfate [Iron] 325 mg PO BID Follow up with: KARI FRASER MD [Primary Care Provider] - 1 Week
[2019-01-13 02:43] VITALS: BP 127/78; PULSE 85
== END 2019-01-13 01:25 | disposition home or self-care (01) | DRG 807 ==
LOC: OB 06:25 → UNDOADMOB 16:48 → OBSVTOIN 01-11 06:25
PROVIDERS: ADMIT Family Medicine; ATTEND Family Medicine
PROC: 10E0XZZ Delivery of Products of Conception, External Approach (ICD-10-PCS; principal; 2019-01-11)
DX: O80 Encounter for full-term uncomplicated delivery (principal); Z37.0 Single live birth; Z3A.39 39 weeks gestation of pregnancy
CPT/HCPCS: 36415; 80307; 83986; 85025; 87086; 94799; G0378; J0290; J2270; J2590; J2795; A9270-GY

== ENCOUNTER 2019-06-08 08:18 | Day surgery (SDC) | payer BC ==
--- NOTE | 2019-06-08 08:16 | HP ---
DATE OF SURGERY: 06/08/2019 ANTICIPATED PROCEDURE: T&A. HISTORY OF PRESENT ILLNESS: Patient with 45 episodes of strep this year and similarly last fall, had markedly cryptic enlarged tonsils with foul material on both sides. PAST MEDICAL HISTORY: ALLERGIES: NONE. MEDICATIONS: None. PAST SURGICAL HISTORY: None. SOCIAL HISTORY: Negative. FAMILY HISTORY: Negative. REVIEW OF SYSTEMS: Negative. PHYSICAL EXAMINATION: VITAL SIGNS: Normal. CHEST: Clear. COR: Regular. IMPRESSION: Cryptic tonsils with sulfur granules. PLAN: T&A.
[2019-06-08] MEDS ORDERED: Lactated Ringers 1,000 ML IV SCH (09:00)
[2019-06-08] MEDS ORDERED: Versed 2 MG/2 ML Injection ONE (09:52)
[2019-06-08] MEDS ORDERED: DIPRIVAN 200 MG/20 ML IV ONE (09:52)
[2019-06-08] MEDS ORDERED: Decadron 4 MG INJ ONE (09:52)
[2019-06-08] MEDS ORDERED: Zofran 4 MG/2 ML VIAL ONE (09:52)
[2019-06-08] MEDS ORDERED: SUBLIMAZE 250 MCG/5 ML ONE (09:52)
[2019-06-08] MEDS ORDERED: Zemuron 100 MG/10 ML ONE (09:52)
[2019-06-08] MEDS ORDERED: CLINDAMYCIN-D5W 600 MG/50 ML IV ONE (10:00)
[2019-06-08] MEDS ORDERED: Cleocin Phosphate IV 600 MG/4 ML ONE (10:06)
[2019-06-08] MEDS ORDERED: Lactated Ringers 1,000 ML IV ONE (10:18)
[2019-06-08] MEDS ORDERED: BRIDION 200MG/2ML IV ONE (10:30)
[2019-06-08] MEDS ORDERED: MORPHINE SULFATE 10 MG/ML ONE (10:54)
[2019-06-08] MEDS ORDERED: SUBLIMAZE 100 MCG/2 ML ONE (10:54)
[2019-06-08] MEDS ORDERED: BENADRYL 50 MG/ML IV ONE (12:08)
[2019-06-08] MEDS ORDERED: BENADRYL 50 MG/ML ONE (12:11)
[2019-06-08 12:30] VITALS: O2SAT 100
[2019-06-08] MEDS: CLARITIN 10 MG PO SCH ×2 (12:59→13:01)
[2019-06-08 13:16] VITALS: PULSE 64
[2019-06-08 13:59] VITALS: BP 111/61
--- NOTE | 2019-06-08 15:00 | OP ---
SURGERY DATE/TIME: 06/08/2019 0952 PREOPERATIVE DIAGNOSIS: Recurrent chronic tonsillitis with persistent inclusion pustules. POSTOPERATIVE DIAGNOSIS: Recurrent chronic tonsillitis with persistent inclusion pustules. PROCEDURES: 1) Bilateral tonsillectomy. 2) Fulguration of the residual adenoids. SURGEON: Erick Fitzgerald M.D. ANESTHESIA: General - Rasheed Greenberg CRNA. COMPLICATIONS: None. ESTIMATED BLOOD LOSS: None. CONDITION: Stable. INDICATION: A 18 year old presents with tonsillar disease. She has had five episodes this spring and four to five last fall. She has cryptic tonsils. DESCRIPTION OF PROCEDURE: She was taken to surgery. General anesthetic. Routine prep and drape. Traditional mouth gag. Left tonsil addressed first. Anterior pillar was scored. Tonsil rolled out of tonsillar fossa. Anterior and posterior pillars intact. Small amount of lingual tonsil, small amount of pharyngeal tonsil cauterized. Adenoids were coagulated. A triangular area which certainly had regressed some but was still present was cauterized. Right tonsil addressed. Anterior pillar scored. Tonsil rolled out of tonsillar fossa. The bed was totally dry. Anterior and posterior pillars intact. Teeth intact. Orofacial structures intact. The patient tolerated the procedure well. Finding discussed with the family and instructions sent with the family.
== END 2019-06-08 14:21 | disposition home or self-care (01) ==
LOC: SDC 08:18
PROVIDERS: ATTEND Surgery
DX: J03.91 Acute recurrent tonsillitis, unspecified (principal); J35.8 Other chronic diseases of tonsils and adenoids
CPT/HCPCS: 84703; 88304; J1100; J1200; J2250; J2270; J2405; J2704; J3010; A9270-GY

== ENCOUNTER 2020-03-30 17:11 | Emergency (ER) | payer BC ==
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
[2020-03-30] MEDS ORDERED: PERCOCET TABLET 5/325MG PO STA (18:20)
[2020-03-30 18:21] VITALS: BP 119/74; PULSE 73; O2SAT 99
[2020-03-30] MEDS ORDERED: PERCOCET TABLET 5/325MG ONE (18:22)
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
== END 2020-03-30 18:42 | disposition home or self-care (01) ==
LOC: ED 17:11
DX: S59.901A Unspecified injury of right elbow, initial encounter (principal); S59.911A Unspecified injury of right forearm, initial encounter; V59.3XXA Occupant (driver) (passenger) of pick-up truck or van injured in unspecified nontraffic accident, initial encounter; Y93.89 Activity, other specified; Y92.9 Unspecified place or not applicable; M25.521 Pain in right elbow; M79.631 Pain in right forearm
CPT/HCPCS: 73060; 73080; 73090; 99283; A9270-GY

== ENCOUNTER 2020-04-15 06:09 | Day surgery (SDC) | payer BC ==
[2020-04-15] MEDS ORDERED: Lactated Ringers 1,000 ML IV SCH (06:30)
[2020-04-15] MEDS ORDERED: Xylocaine-Mpf 2% 5 Ml Vial ONE (07:49)
[2020-04-15] MEDS ORDERED: Ketamine HCl 50 MG/ML ONE (07:49)
[2020-04-15] MEDS ORDERED: DIPRIVAN 200 MG/20 ML IV ONE (07:49)
[2020-04-15 08:50] VITALS: BP 102/62; PULSE 71; O2SAT 100
--- NOTE | 2020-04-15 11:19 | OP ---
SURGERY DATE/TIME: 04/15/2020 0747 PREOPERATIVE DIAGNOSIS: Rectal bleeding. POSTOPERATIVE DIAGNOSIS: Normal colon. PROCEDURE: Colonoscopy. SURGEON: Dr. Weller. ANESTHESIA: MAC. Medications given by anesthesia department. HISTORY: The patient is a 19 year-old white female who reports persistent rectal bleeding. The patient reports that this bleeding has been painless. She was felt the need to have endoscopic evaluation. The patient was appraised of the risks of the procedure including the risk of perforation, phlebitis, untoward reaction to medication, bleeding and missed lesions. The patient verbalized her understanding and desired to have the procedure performed. DESCRIPTION OF PROCEDURE: The patient was given the medications by the anesthesia department. She had continuous pulse oximetry, ECG monitoring, intermittent blood pressure monitoring and tidal CO2 monitoring during the examination. She was placed in the left lateral decubitus position. A digital rectal examination was performed and revealed normal anal sphincter tone and no masses. No hemorrhoids and no fissures were felt. The flexible Olympus pediatric colonoscope was used to intubate the rectum. A view of the colon was developed sequentially to the cecum including a short distance into the terminal ileum. Upon insertion and withdrawal, including a retroflex view in the rectum, no mucosal lesions were encountered. The scope was removed from the patient who tolerated the procedure well and was sent back to OP recovery in good condition. The prep was noted to be good.
== END 2020-04-15 08:55 | disposition home or self-care (01) ==
LOC: SDC 06:09
PROVIDERS: ATTEND Family Medicine
DX: K62.5 Hemorrhage of anus and rectum (principal)
CPT/HCPCS: 84703; J2704

== ENCOUNTER 2020-09-07 22:28 | Emergency (ER) | payer BC ==
[2020-09-07] MEDS ORDERED: Sodium Chloride 0.9% 1000 ML 1,000 ML IV STA (22:57)
[2020-09-07] MEDS ORDERED: Pepcid 20 MG VIAL IV ONE ×2 (22:57→23:06)
--- NOTE | 2020-09-07 22:57 | ERPHSYRPT ---
- History of Present Illness Time Seen by Provider: 09/07/20 22:54 Historian: patient, family Exam Limitations: no limitations Physician History: pt has one month hx abd pain and reports being told several months ago that she had GS - pain is RUQ and tender on exam without peritoneal signs - discussed risk and benefit of Ct and she wishes to proceed, Timing/Duration: week(s), intermittent Activities at Onset: other (eating reproduces pain) Quality: cramping, fullness Abdominal Pain Onset Location: RUQ, epigastric Pain Radiation: RUQ Severity of Pain-Max: moderate Severity of Pain-Current: moderate Modifying Factors: Improves With: eating Associated Symptoms: nausea Previous symptoms: same symptoms as today Allergies/Adverse Reactions: cephalexin [From Keflex] Adverse Reaction (Verified 09/07/20 22:57) vomits and abdominal pain whenever she takes it Home Medications: Famotidine 20 mg PO TID 09/07/20 [History] Phentermine HCl 37.5 mg PO DAILY 09/07/20 [History] Venlafaxine HCl [Venlafaxine HCl ER] 75 mg PO DAILY 09/07/20 [History] Hx Tetanus, Diphtheria Vaccination/Date Given: Yes Hx Influenza Vaccination/Date Given: Yes Hx Pneumococcal Vaccination/Date Given: No - Review of Systems Constitutional: No Fever, No Chills Eyes: No Symptoms Ears, Nose, & Throat: No Symptoms Respiratory: No Cough, No Dyspnea Cardiac: No Chest Pain, No Edema, No Syncope Abdominal/Gastrointestinal: Abdominal Pain, Nausea, No Vomiting, No Diarrhea Genitourinary Symptoms: No Dysuria Musculoskeletal: No Back Pain, No Neck Pain Skin: No Rash Neurological: No Dizziness, No Focal Weakness, No Sensory Changes Psychological: No Symptoms Endocrine: No Symptoms All Other Systems: Reviewed and Negative - Past Medical History Pertinent Past Medical History: Yes Neurological History: No Pertinent History ENT History: No Pertinent History Cardiac History: No Pertinent History Respiratory History: Asthma Endocrine Medical History: No Pertinent History Musculoskeletal History: No Pertinent History GI Medical History: No Pertinent History History: No Pertinent History Psycho-Social History: No Pertinent History Female Reproductive Disorders: No Pertinent History Other Medical History: ovarian cysts, anemia - Past Surgical History Past Surgical History: Yes Neuro Surgical History: No Pertinent History Cardiac: No Pertinent History Respiratory: No Pertinent History Gastrointestinal: No Pertinent History Genitourinary: No Pertinent History Musculoskeletal: No Pertinent History Female Surgical History: No Pertinent History - Social History Smoking Status: Former smoker How long have you smoked: 4 months Exposure to second hand smoke: Yes Alcohol Use: None Drug Use: none Patient Lives Alone: No Significant Family History: no pertinent family hx - Nursing Vital Signs Nursing Vital Signs: Initial Vital Signs Temperature 98.5 F 09/07/20 22:38 Pulse Rate 93 H 09/07/20 22:38 Respiratory Rate 18 09/07/20 22:38 Blood Pressure 139/83 09/07/20 22:38 O2 Sat by Pulse Oximetry 100 09/07/20 22:38 Pain Scale Pain Intensity 4 - Physical Exam General Appearance: no apparent distress, alert Eye Exam: PERRL/EOMI, eyes nml inspection Ears, Nose, Throat Exam: normal ENT inspection, pharynx normal, moist mucous membranes Neck Exam: normal inspection, non-tender, supple, full range of motion Respiratory Exam: normal breath sounds, lungs clear, No respiratory distress Cardiovascular Exam: regular rate/rhythm, normal heart sounds Gastrointestinal/Abdomen Exam: soft, tenderness (ruq), No mass Pelvic Exam: deferred Rectal Exam: deferred Back Exam: normal inspection, normal range of motion, No CVA tenderness, No vertebral tenderness Extremity Exam: normal inspection, normal range of motion, pelvis stable Neurologic Exam: alert, oriented x 3, cooperative, normal mood/affect, nml cerebellar function, sensation nml, No motor deficits Skin Exam: normal color, warm, dry SpO2: 100 - Course Nursing assessment & vital signs reviewed: Yes Ordered Tests: Active Orders 24 hr Category Date Time Status IV Insertion STAT Care 09/07/20 22:57 Active ABDOMEN AND PELVIS W/0 CONTRAS [CT] Stat Exams 09/07/20 22:58 Taken AMYLASE Stat Lab 09/07/20 23:06 Completed CBC W DIFF Stat Lab 09/07/20 23:06 Completed CMP Stat Lab 09/07/20 23:06 Completed FECAL OCCULT BLOOD - SCREENING Stat Lab 09/07/20 Uncollected HCG QUALITATIVE,SERUM Stat Lab 09/07/20 23:06 Completed LIPASE Stat Lab 09/07/20 23:06 Completed Lactic Acid Stat Lab 09/07/20 23:05 Completed UA W/RFX UR CULTURE Stat Lab 09/07/20 23:06 Completed Medication Summary Discontinued Medications Generic Name Dose Route Start Last Admin Trade Name Freq PRN Reason Stop Dose Admin Famotidine 20 mg 09/07/20 22:57 09/07/20 23:10 Pepcid 20 Mg Vial IV 09/07/20 22:58 20 mg STAT ONE Administration Famotidine Confirm 09/07/20 23:06 Pepcid 20 Mg Vial Administered 09/07/20 23:07 Dose 20 mg IV .STK-MED ONE Sodium Chloride 1,000 mls @ 999 mls/hr 09/07/20 22:57 09/07/20 23:10 Sodium Chloride 0.9% 1000 Ml IV 09/07/20 23:57 999 mls/hr .Q1H1M STA Administration Sodium Chloride Confirm 09/07/20 23:06 Sodium Chloride 0.9% 1000 Ml Administered 09/07/20 23:07 Dose 1,000 mls @ ud .ROUTE .STK-MED ONE Potassium Bicarbonate 25 meq 09/07/20 23:27 09/07/20 23:49 K-Lyte 25 Meq PO 09/07/20 23:28 25 meq STAT ONE Administration Potassium Bicarbonate Confirm 09/07/20 23:48 K-Lyte 25 Meq Administered 09/07/20 23:49 Dose 25 meq .ROUTE .STK-MED ONE Lab/Rad Data: Laboratory Result Diagrams 09/07/20 23:06 09/07/20 23:06 Laboratory Results 09/07/20 09/07/20 09/07/20 Range/Units 23:06 23:06 23:06 WBC (4.0-10.5) K/mm3 RBC (4.1-5.4) M/mm3 Hgb (12.0-16.0) gm/dl Hct (35-47) % MCV (78-100) fl MCH (26-32) pg MCHC (32-36) g/dl RDW (11.5-14.0) % Plt Count (150-450) K/mm3 MPV (7.5-11.0) fl Gran % (36.0-66.0) % Eos # (Auto) (0-0.5) Absolute Lymphs (auto) (1.0-4.6) Absolute Monos (auto) (0.0-1.3) Lymphocytes % (24.0-44.0) % Monocytes % (0.0-12.0) % Eosinophils % (0.00-5.0) % Basophils % (0.0-0.4) % Absolute Granulocytes (1.4-6.9) Basophils # (0-0.4) Sodium 140 (137-145) mmol/L Potassium 3.0 L (3.5-5.1) mmol/L Chloride 106 (98-107) mmol/L Carbon Dioxide 25 (22-30) mmol/L Anion Gap 11.8 (5-15) MEQ/L BUN 6 L (7-17) mg/dL Creatinine 0.62 (0.52-1.04) mg/dL Estimated GFR > 60.0 ML/MIN Glucose 101 (74-106) mg/dL Lactic Acid (0.4-2.0) Calcium 9.5 (8.4-10.2) mg/dL Total Bilirubin 0.20 (0.2-1.3) mg/dL AST 24 (14-36) U/L ALT 20 (0-35) U/L Alkaline Phosphatase 85 (38-126) U/L Serum Total Protein 8.0 (6.3-8.2) g/dL Albumin 4.9 (3.5-5.0) g/dL Amylase 51 (30-110) U/L Lipase 42 (23-300) U/L Serum , Qual NEGATIVE (Negative) Urine Color YELLOW (YELLOW) Urine Appearance CLEAR (CLEAR) Urine pH 6.0 (5-6) Ur Specific [place] 1.008 (1.005-1.025) Urine Protein NEGATIVE (Negative) Urine Ketones NEGATIVE (NEGATIVE) Urine Blood NEGATIVE (0-5) Deven/ul Urine Nitrite NEGATIVE (NEGATIVE) Urine Bilirubin NEGATIVE (NEGATIVE) Urine Urobilinogen NEGATIVE (0-1) mg/dL Ur Leukocyte Esterase NEGATIVE (NEGATIVE) Urine WBC (Auto) NONE (0-5) /HPF Urine RBC (Auto) NONE (0-2) /HPF U Epithel Cells (Auto) RARE (FEW) /HPF Urine Bacteria (Auto) NONE (NEGATIVE) /HPF Urine Culture Reflexed NO (NO) Urine Glucose NEGATIVE (NEGATIVE) mg/dL 09/07/20 09/07/20 Range/Units 23:06 23:05 WBC 9.5 (4.0-10.5) K/mm3 RBC 4.50 (4.1-5.4) M/mm3 Hgb 12.3 (12.0-16.0) gm/dl Hct 37.5 (35-47) % MCV 83.3 (78-100) fl MCH 27.3 (26-32) pg MCHC 32.8 (32-36) g/dl RDW 13.6 (11.5-14.0) % Plt Count 309 (150-450) K/mm3 MPV 10.7 (7.5-11.0) fl Gran % 53.2 (36.0-66.0) % Eos # (Auto) 0.12 (0-0.5) Absolute Lymphs (auto) 3.64 (1.0-4.6) Absolute Monos (auto) 0.64 (0.0-1.3) Lymphocytes % 38.4 (24.0-44.0) % Monocytes % 6.7 (0.0-12.0) % Eosinophils % 1.3 (0.00-5.0) % Basophils % 0.4 (0.0-0.4) % Absolute Granulocytes 5.05 (1.4-6.9) Basophils # 0.04 (0-0.4) Sodium (137-145) mmol/L Potassium (3.5-5.1) mmol/L Chloride (98-107) mmol/L Carbon Dioxide (22-30) mmol/L Anion Gap (5-15) MEQ/L BUN (7-17) mg/dL Creatinine (0.52-1.04) mg/dL Estimated GFR ML/MIN Glucose (74-106) mg/dL Lactic Acid 1.4 (0.4-2.0) Calcium (8.4-10.2) mg/dL Total Bilirubin (0.2-1.3) mg/dL AST (14-36) U/L ALT (0-35) U/L Alkaline Phosphatase (38-126) U/L Serum Total Protein (6.3-8.2) g/dL Albumin (3.5-5.0) g/dL Amylase (30-110) U/L Lipase (23-300) U/L Serum , Qual (Negative) Urine Color (YELLOW) Urine Appearance (CLEAR) Urine pH (5-6) Ur Specific [place] (1.005-1.025) Urine Protein (Negative) Urine Ketones (NEGATIVE) Urine Blood (0-5) Deven/ul Urine Nitrite (NEGATIVE) Urine Bilirubin (NEGATIVE) Urine Urobilinogen (0-1) mg/dL Ur Leukocyte Esterase (NEGATIVE) Urine WBC (Auto) (0-5) /HPF Urine RBC (Auto) (0-2) /HPF U Epithel Cells (Auto) (FEW) /HPF Urine Bacteria (Auto) (NEGATIVE) /HPF Urine Culture Reflexed (NO) Urine Glucose (NEGATIVE) mg/dL - Progress Progress: improved, re-examined Progress Note: 09/08/20 00:25 explained to pt and mom that we have not determined the source of her pain and that undetected serious pathology could still be evolving including GB, PUD and other sources and this requires workup with her PCP and GI specialist prob including scoping and maybe other GB testing or other GI testing. 09/08/20 00:27 she prefers outpt w/u to further testing in ER or Admission tonight. and has the capacity to make this choice. Counseled pt/family regarding: lab results, diagnosis, need for follow-up, rad results - Departure Departure Disposition: Home Clinical Impression: Abdominal pain of unknown etiology Condition: Good Critical Care Time: No Referrals: DAHLIA OKEEFE [Primary Care Provider] - Instructions: Acute Abdomen (Belly Pain), Adult (DC), Peptic Ulcers (DC), Gallbladder Diet Additional Instructions: we have not determined a cause for your pain , but furhter evaluation for u lcers, and GB disease should be considered with your and maybe a GI specialist. Return meantime if further problems. also rehydration solutions like pedialyte may help and your potassium needs to be rechecked with your DrJuancho this week
[2020-09-07] MEDS ORDERED: Sodium Chloride 0.9% 1000 ML 1,000 ML ONE (23:06)
[2020-09-07 23:10] LABS: Absolute Neutrophil Ct (ANC) 5.05 (1.4-6.9); BASOPHIL % 0.4 % (0.0-0.4); Basophil (Absolute #) 0.04 (0-0.4); Eosinophil % 1.3 % (0.00-5.0); Eosinophil (Absolute #) 0.12 (0-0.5); Hematocrit 37.5 % (35-47); Hemoglobin 12.3 gm/dl (12.0-16.0); Lymphocyte (Absolute #) 3.64 (1.0-4.6); Lymphocytes % 38.4 % (24.0-44.0); Mean Cell Volume 83.3 fl (78-100); Mean Corpuscular Hemoglobin 27.3 pg (26-32); Mean Corpuscular Hgb Concent. 32.8 g/dl (32-36); Mean Platelet Volume 10.7 fl (7.5-11.0); Monocyte (Absolute #) 0.64 (0.0-1.3); Monocytes % 6.7 % (0.0-12.0); Neutrophil % 53.2 % (36.0-66.0); Platelet Count 309 K/mm3 (150-450); Red Cell Distribution Width 13.6 % (11.5-14.0); White Blood Count 9.5 K/mm3 (4.0-10.5)
[2020-09-07 23:14] LABS: Appearance CLEAR (CLEAR); Bilirubin NEGATIVE (NEGATIVE); Blood NEGATIVE Ery/ul (0-5); Epithelial Cells RARE /HPF (FEW); Glucose NEGATIVE (NEGATIVE); Ketones NEGATIVE (NEGATIVE); Leukocyte Esterase NEGATIVE (NEGATIVE); Nitrite NEGATIVE (NEGATIVE); Protein,Urine Dip NEGATIVE (Negative); Specific Gravity 1.008 (1.005-1.025); Urobilinogen NEGATIVE mg/dL (0-1)
[2020-09-07 23:23] LABS: ALBUMIN 4.9 g/dL (3.5-5.0); ALKALINE PHOSPHATASE 85 U/L (38-126); AMYLASE 51 U/L (30-110); ANION GAP 11.8 MEQ/L (5-15); BLOOD UREA NITROGEN 6 mg/dL (7-17); CHLORIDE 106 mmol/L (98-107); Calcium 9.5 mg/dL (8.4-10.2); Carbon Dioxide 25 mmol/L (22-30); Creatinine 1 0.62 mg/dL (0.52-1.04); EST GLOMERULAR FILTRATION RATE > 60.0 ML/MIN; Glucose 101 mg/dL (74-106); LIPASE 42 U/L (23-300); SGOT/AST 24 U/L (14-36); SGPT/ALT 20 U/L (0-35); SODIUM 140 mmol/L (137-145)
[2020-09-07] MEDS ORDERED: K-LYTE 25 MEQ PO ONE (23:27)
[2020-09-07] MEDS ORDERED: K-LYTE 25 MEQ ONE (23:48)
[2020-09-08 00:14] VITALS: BP 110/75; PULSE 76
[2020-09-08 00:31] VITALS: O2SAT 100
[2020-09-08] MEDS ORDERED: Phenergan 25 MG INJ IM ONE (00:34)
[2020-09-08] MEDS ORDERED: PHENERGAN 25 MG PO ONE (00:35)
[2020-09-08] MEDS ORDERED: Phenergan 25 MG INJ ONE (00:36)
[2020-09-08] MEDS ORDERED: PHENERGAN 25 MG ONE (00:40)
--- NOTE | 2020-09-08 07:37 | XRAY ---
Indication: Right upper quadrant pain, nausea, and vomiting. Multiple contiguous axial images obtained through the abdomen and pelvis without contrast as ordered. Comparison: None. Lung bases are clear. Heart is not enlarged. Stomach is distended with food/fluid. Noncontrasted stomach and bowel loops appear nonobstructed. Normal appendix. Tiny cul-de-sac fluid presumed physiologic from rupture/leaking cyst. Uterus demonstrates IUD in situ. No walled off fluid collection or free air. Spleen is enlarged measuring 13 cm in greatest dimension. Remaining liver, gallbladder, pancreas, spleen, adrenal glands, kidneys, ureters, bladder, and aorta appear unremarkable for noncontrast exam. Osseous structures intact. Impression: 1. Tiny physiologic cul-de-sac fluid and IUD in situ. 2. Incidental splenomegaly. 3. Remaining CT abdomen/pelvis without contrast exam is negative. Comment: Preliminary interpretation was made by [facility]. No critical discrepancy.
== END 2020-09-08 00:57 | disposition home or self-care (01) ==
LOC: ED 22:28
DX: R10.9 Unspecified abdominal pain (principal)
CPT/HCPCS: 36000; 36415; 74176; 80053; 81001; 81025; 82150; 83605; 83690; 85025; 96372; 96374; 99284; J2550; A9270-GY

== ENCOUNTER 2020-09-27 05:58 | Day surgery (SDC) | payer BC ==
[2020-09-27] MEDS ORDERED: Lactated Ringers 1,000 ML IV ONE (06:04)
[2020-09-27] MEDS ORDERED: Lactated Ringers 1,000 ML IV SCH (06:30)
[2020-09-27] MEDS ORDERED: Versed 2 MG/2 ML Injection ONE (07:26)
[2020-09-27] MEDS ORDERED: DIPRIVAN 200 MG/20 ML IV ONE ×2 (07:26→07:52)
[2020-09-27] MEDS ORDERED: Zofran 4 MG/2 ML VIAL ONE (08:00)
[2020-09-27] MEDS ORDERED: Reglan 10 MG/2 ML ONE (08:01)
--- NOTE | 2020-09-27 08:11 | OP ---
SURGERY DATE/TIME: 09/27/2020 1452 PREOPERATIVE DIAGNOSES: 1) Abdominal pain. 2) Black stools. POSTOPERATIVE DIAGNOSES: 1) Poor gastric emptying. 2) Mild gastritis. PROCEDURE: Esophagogastroduodenoscopy with cold forceps biopsy. SURGEON: Dr. Weller. ANESTHESIA: Medications were given by the anesthesia department. BRIEF HISTORY: The patient is a 19 year old white female who complains of abdominal pain. She has had a colonoscopy before where she complained of bright red rectal bleeding. She reports that the stool is now black and she has been having problems still with the pain. The patient is felt to need to have endoscopic evaluation. She was appraised of the risks of the procedure including the risk of perforation, phlebitis, untoward reaction to medication, bleeding and missed lesions. The patient verbalized her understanding and desired to have the procedure performed. DESCRIPTION OF PROCEDURE: The patient was given the medications by the anesthesia department. She had continuous pulse oximetry, ECG monitoring, intermittent blood pressure monitoring and tidal CO2 monitoring during the examination. She was placed in the left lateral decubitus position. A bite block was placed. A flexible Olympus gastroscope was used to intubate the oropharynx. The scope was easily introduced in the esophagus which appeared to be normal throughout its length although there did appear to be some reflux of materials in the esophagus. The stomach was entered. We noted large amounts of pasty material occupying at least a third of the stomach. We insufflated the stomach with air to allow visualization. We passed the scope along to the pylorus which was then intubated. Duodenum inspected and found to be essentially normal. The scope is withdrawn towards the stomach. Again, a retroflex view was obscured by food stuffs, unable to see the gastroesophageal junction below. Biopsies were obtained from the gastric antrum to rule out the presence of Helicobacter pylori bacteria and confirm the presence of what we felt were likely gastritis. The scope was then removed from the patient who tolerated the procedure well and was sent back to the outpatient recovery in good condition.
[2020-09-27 09:05] VITALS: O2SAT 98
[2020-09-27 09:06] VITALS: BP 128/61; PULSE 102
== END 2020-09-27 09:10 | disposition home or self-care (01) ==
LOC: SDC 05:58
PROVIDERS: ATTEND Family Medicine
DX: K29.70 Gastritis, unspecified, without bleeding (principal); R10.9 Unspecified abdominal pain
CPT/HCPCS: 84703; J2250; J2405; J2704